=== PATIENT | male | born 1980 | race Caucasian/White ===

== ENCOUNTER 2022-08-28 21:37 | Inpatient (IN) | payer OTHER ==
[~2022-08-28] VITALS: Ht 170.2 cm; Wt 100.7 kg
--- NOTE | 2022-08-28 21:37 | NUR ---
PT BROUGHT TO BED 10 VIA DONNA DAVILA Addendum: 08/28/22 at 2152 by ALLYSON PT BROUGHT TO BED 10 VIA CHRISTOPHER DAVILA
[2022-08-28 21:40] VITALS: BP 64/21
[2022-08-28 21:52] VITALS: BP 65/26
[2022-08-28] MEDS ORDERED: PIPERACILLIN/TAZOBACTAM 3.375 GM in DEXTROSE 5% 50 ML IV ONE (21:55)
[2022-08-28] MEDS ORDERED: NACL 0.9% 2,000 ML IV SCH (21:55)
--- NOTE | 2022-08-28 22:00 | NUR ---
Gtube dressing noted soaked with gastric contents. scarring and dressing noted on abdominal area. ERMD at bedside and aware. Gtube dressing was changed Addendum: 08/29/22 at 0632 by [email or web address] Gtube was noted soaked with gastric content on arrival
[2022-08-28 23:03] LABS: APPEARANCE,URINE CLEAR (CLEAR); BILIRUBIN,URINE NEGATIVE (NEGATIVE); BLOOD, URINE 3+ (NEGATIVE); COLOR,URINE YELLOW (YELLOW); LEUKOCYTE ESTERASE ,URINE 3+ (NEGATIVE); NITRITE, URINE NEGATIVE (NEGATIVE); PH,URINE 7.5 (5.0-9.0); UGLUCOSE NEGATIVE (NEGATIVE)
[2022-08-28 23:19] LABS: RBC,URINE TOO NUMEROUS TO COUN /HPF (0-5)
[2022-08-28 23:40] LABS: BASOPHILS % (AUTO) 0.1 % (0.0-2.0); EOSINOPHILS # (AUTO) 0.1 K/uL (0-0.4); EOSINOPHILS % (AUTO) 0.4 % (0.0-4.0); HEMATOCRIT 33.4 % (36-52); HEMOGLOBIN 10.6 g/dL (12.0-18.0); LYMPHOCYTES # (AUTO) 0.8 K/uL (2.0-11.5); LYMPHOCYTES % (AUTO) 3.7 % (20.5-51.1); MEAN CORPUSCULAR HEMOGLOBIN 28 pg (27-31); MEAN CORPUSCULAR HGB CONC 32 g/dL (33-37); MONOCYTES # (AUTO) 1.1 K/uL (0.8-1.0); MONOCYTES % (AUTO) 4.8 % (1.7-9.3); NEUTROPHILS # (AUTO) 20.9 K/uL (1.8-7.7); PLATELET COUNT (AUTO) 278 K/uL (140-450); RED BLOOD CELL COUNT(AUTO) 3.75 MIL/uL (4.20-6.10); RED CELL DISTRIBUTION WIDTH 18.5 % (11.6-13.7); WHITE BLOOD COUNT (AUTO) 22.9 K/uL (4.8-10.8)
[2022-08-29] VITALS (17 sets, daily range): BP systolic 95–137; BP diastolic 47–86
[2022-08-29 00:07] LABS: ALBUMIN 2.5 g/dL (3.4-5.0); ANION GAP 11.2 (8-16); CARBON DIOXIDE 27.6 mmol/L (21-32); CREATININE 1.1 mg/dL (0.6-1.3); POTASSIUM 3.8 mmol/L (3.5-5.1); TOTAL BILIRUBIN 0.9 mg/dL (0.0-1.0)
--- NOTE | 2022-08-29 00:40 | NUR ---
ER Dr. Do at bedside placing central line
[2022-08-29] MEDS ORDERED: NOREPINEPHRINE 4 MG in DEXTROSE 5% 250 ML IV ONE (00:45)
[2022-08-29] MEDS ORDERED: ONDANSETRON 4 MG/2 ML VIAL IVP PRN (00:55)
[2022-08-29] MEDS ORDERED: KCL 20 MEQ IN 100 mL PREMIX 200 ML IV PRN (00:55)
[2022-08-29] MEDS ORDERED: MAG SULF 2000 MG/WATER PREMIX 50 ML IV PRN (00:55)
[2022-08-29] MEDS ORDERED: POTASSIUM CHLORIDE 10 MEQ TABER PO PRN (00:55)
[2022-08-29] MEDS ORDERED: VANCOMYCIN PER PHARMACY MC PRN (00:55)
[2022-08-29] MEDS ORDERED: ACETAMINOPHEN 325 MG TAB PO PRN (00:55)
[2022-08-29] MEDS ORDERED: LORazepam 1 MG TAB PO PRN (00:55)
[2022-08-29] MEDS ORDERED: MORPHINE SULFATE 4 MG/ML SYR IVP PRN (00:55)
[2022-08-29] MEDS ORDERED: NOREPINEPHRINE 4 MG/4 ML VIAL IV ONE ×2 (01:12→08:49)
[2022-08-29] MEDS ORDERED: PIPERACILLIN/TAZOBACTAM 3.375 GM VIAL IV ONE ×2 (01:44→07:54)
[2022-08-29] MEDS ORDERED: VANCOMYCIN 1GM/DEXT 5% PREMIX 200 ML IV SCH (03:00)
--- NOTE | 2022-08-29 03:23 | NUR ---
Patient care provided and linens changes, wound on sacral area cleaned and covered with dressing.
[2022-08-29] MEDS ORDERED: ACETAMINOPHEN 650 MG SUPP RC ONE (05:14)
--- NOTE | 2022-08-29 05:40 | NUR ---
Pt heart rate noted elevated in the 140s, rectal temp checked 102.4. tylenol 650 mg given. While replacing rinaldi catheter from facility, hematuria noted - urine was blood red. also noted gtube dressing soaked with gastric contents. Dr. Dasha beverly, waiting for response from on-call Dr. Zuñiga.
--- NOTE | 2022-08-29 06:20 | NUR ---
Paged attending physician regarding patient, awaiting response
--- NOTE | 2022-08-29 07:05 | NUR ---
Levophed at max dose, attending physician paged. waiting for response
--- NOTE | 2022-08-29 07:15 | NUR ---
Received response from Dr. Zuñiga, new orders given for KUB, and to start on vasopressin drip.
--- NOTE | 2022-08-29 07:29 | NUR ---
RECEIVED ON A [employer] R860 VENTILATOR PLUGGED INTO RED OUTLET TOLERATING WELL WITHOUT COMPLICATIONS NOTED TO A PORTEX DCT #8 AIRWAY SECURED WITH A PORTEX TRACH TIE CUFF PRESSURE CHECKED NOTED AMBU BAG AT BEDSIDE AWAKE STABLE NO EVIDENCE FO RESPIRATORY DISTRESS NOTED EQUAL CHEST RISE DEEP TRACHEAL SUCTION FOR LARGE THIN YELLOW SECRETIONS AIRWAY PATENT
--- NOTE | 2022-08-29 07:36 | NUR ---
Report given to Shin GROSSMAN
[2022-08-29] MEDS ORDERED: ACETAMINOPHEN 650 MG SUPP RC PRN (07:40)
[2022-08-29] MEDS: PIPERACILLIN/TAZOBACTAM 3.375 GM in DEXTROSE 5% 50 ML IV SCH ×3 (07:55→17:32)
--- NOTE | 2022-08-29 08:02 | NUR ---
TRANSFERRED TO ICU-4 PATIENT REMAINED ON VENTILATOR TOLERATED TRANSFER WELL WITHOUT ADVERSE REACTIONS NOTED SATURATION 97% HR 114
--- NOTE | 2022-08-29 08:03 | NUR ---
Report given to receiving CHAUNCEY. VSThalia. Pt currently running LEVO thru central line @ 30mcg. Wound pics taken by PM CHAUNCEY.
--- NOTE | 2022-08-29 08:30 | NUR ---
RECEIVED REPORT FROM FROM ER NURSE. ADMITTED 42Y/O MALE TRACH TO VENT ACPRVC 28% RATE 16 TV 450 PEEP 5. CC OF FEVER AND HEMATURIA. ADMITTING DX SEPSIS. WITH RIJ TLC RUNNING LEVOPHED 30MCG/MIN, BP 57/17. VASOPRESSIN STARTED
--- NOTE | 2022-08-29 08:57 | NUR ---
PATIENT HAS BEEN SCREENED AND CATEGORIZED HIGH NUTRITION RISK. PATIENT WILL BE SEEN WITHIN 1-2 DAYS OF ADMISSION. REVIEWED BY MARC HERNANDEZ RD
[2022-08-29] MEDS: ENOXAPARIN 40 MG/0.4 ML SYR SUBQ SCH (09:00)
[2022-08-29] MEDS: VASOPRESSIN 20 UNITS in NACL 0.9% 250 ML IV SCH ×2 (09:00→23:23)
[2022-08-29] MEDS ORDERED: DOCUSATE SODIUM 100 MG GELCAP PO SCH (09:00)
[2022-08-29] MEDS ORDERED: NOREPINEPHRINE 8 MG in DEXTROSE 5% 250 ML IV PRN (09:30)
[2022-08-29] MEDS ORDERED: NOREPINEPHRINE 16 MG in DEXTROSE 5% 250 ML IV PRN (09:50)
[2022-08-29] MEDS: VANCOMYCIN 1.25GM PREMIX 250 ML IV SCH ×2 (10:53→22:29)
[2022-08-29] MEDS ORDERED: NACL 0.9% 500 ML IV SCH (10:55)
--- NOTE | 2022-08-29 11:00 | NUR ---
STABLE RESTING WELL GOOD CHEST RISE DEEP TRACHEAL SUCTION FOR LARGE THIN PALE YELLOW SECRETIONS AIRWAY PATENT
--- NOTE | 2022-08-29 11:30 | NUR ---
SEEN AND EXAMINED BY DR GANDHI, ORDERS NOTED AND CARRIED OUT
[2022-08-29] MEDS: levETIRAcetam 500 MG in NACL 0.9% 100 ML IV SCH ×2 (12:16→21:57)
[2022-08-29] MEDS ORDERED: NACL 0.9% 1,000 ML IV SCH (12:25)
--- NOTE | 2022-08-29 13:44 | NUR ---
TRANSFERRED TO RADIOLOGY FOR CT SCAN OF ABDOMINAL/PELVIS REMOVED FROM VENTILATOR PLACED ON SUPPLEMENTAL OXYGEN VIA E-TANK AT 15 LPM TO AMBU BAG/HME/INLINE SUCTION CATHETER/TRACHEOSTOMY TUBE BAG DEPRESSION EVERY 6-8 SECONDS TOLERATED PROCEDURE ANT TRANSFERS WELL WITHOUT COMPLICATIONS NOTED SATURATION 100% HR MID 80'S
--- NOTE | 2022-08-29 13:58 | NUR ---
BACK FROM CT, NO APPARENT DISTRESS, VS WNL
--- NOTE | 2022-08-29 14:10 | NUR ---
STABLE GOOD CHEST RISE DEEP TRACHEAL SUCTION FOR SMALL THIN PALE YELLOW SECRETIONS AIRWAY PATENT
--- NOTE | 2022-08-29 14:40 | NUR ---
DC PLANNING ASSESSMENT COMPLETE PLEASE REFER TO ASSESSMENT FOR ADDITIONAL DETAILS PT CHRONIC TRACH TO VENT PT, THEREFORE, COLLAT INFO GATHERED FROM [facility] ADMIN. OUTREACHED TO PT MOTHER, TO CONFIRM INFORMATION GATHERED FROM BRAD. PT IS A 42 YR OLD MALE ADMITTED TO [facility] FROM [facility] WITH DX OF SEPTIC SHOCK. PT HAS PAST MEDICAL HX OF SEIZURE, HYPERTENSION, CHRONIC RESP FAILURE ( TRAYC-VENT DEPENDENT) PEG TUBE AND QUADRIPLEGIA. PT PRIMARILY BEDBOUND AND IS TOTAL CARE AT FACILITY PT IN SUBACUTE CARE WITH [facility], ADMISSION DATE 08/21/21. BRAD REPORTS TENTATIVE DC PLAN IS FOR PT TO RETURN TO [facility], ONCE MEDICALLY STABLE. OUTREACHED TO PTS MOTHER TO CONFIRM INFORMATION GATHERED FROM BRAD. MOTHER CONFIRMED ALL INFO GATHERED AND IS AWARE PT HAS BEEN ADMITTED TO [facility]. MOTHER CONFIRMS TENTATIVE DC PLAN IS FOR PT TO RETURN TO [facility] ONCE MEDICALLY STABLE. Addendum: 08/29/22 at 1443 by Torin WONG Amended: Links added.
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
--- NOTE | 2022-08-29 15:32 | NUR ---
08/29/22 RD INITIAL ASSESSMENT COMPLETED PLEASE REFER TO NUTRITION ASSESSMENT UNDER CARE ACTIVITY FOR ESTIMATED NUTRITIONAL NEEDS. 1. MONITOR NPO STATUS 2. WHEN/IF MEDICALLY APPROPRIATE TO START TF, RECOMMEND JEVITY 1.2 AT GOAL RATE 70 ML/HR, FWF 100 ML Q4H TOLERATED, WITH TOMMY BID FOR WOUND SUPPORT. (TOMMY BID PROVIDES 160 KCAL AND 5 GM PROTEIN DAILY) - WITH TOMMY BID, PROVIDES 1680 ML TOTAL VOLUME, 2176 KCAL, 97 GM PROTEIN AND 1955 ML FREE WATER DAILY MEETING 100% ESTIMATED KCAL AND PROTEIN NEEDS; ADEQUATE - START TF AT 2O ML/HR INCREASE BY 2O ML Q4H UNTIL GOAL IS REACHED TOLERATED 3. MONITOR GI SYMPTOMS, GASTRIC RESIDUALS AND NUTRITION RELATED LAB VALUES 4. CONSULT RD PRN 5. RD TO FOLLOW-UP 2-3 DAYS, HIGH RISK REVIEWED BY MARC HERNANDEZ RD
--- NOTE | 2022-08-29 15:53 | NUR ---
NO SOB NOTED GOOD CHEST RISE DEEP TRACHEAL SUCTION FOR MODERATE THIN YELLOW SECRETIONS AIRWAY PATENT
[2022-08-30] VITALS (26 sets, daily range): BP systolic 95–126; BP diastolic 51–77
[2022-08-30] MEDS: PIPERACILLIN/TAZOBACTAM 3.375 GM in DEXTROSE 5% 50 ML IV SCH ×4 (00:41→17:36)
--- NOTE | 2022-08-30 06:00 | NUR ---
--PT CONT. WITH TRACH-TO VENT. PT JOHNNY WELL. IV I/P VIA RIJ-TLC. PT OPENS EYE AND HAS FACIAL GRIMACING TO PAIN. PT MED WITH MS 4MG IVP X1. PT HAS BEEN IN SR. PT CONT. WITH LEVOPHED DRIP-BP HAS BEEN >90 SYST. PT ALSO CONT. ON VASOPRESS. DRIP. PT HAD LARGE DARK BRN DIARRHEA STOOL. BATH AND LINEN CHANGE DONE. WOUND CARE GIVEN. PT HAS GT WITH WOUND NEAR IT WITH YELL AND SANG. DRAINAGE. PT HAS T.FEEDG BUT GT HAS BECOME OCCLUDED AT END OF SHIFT-ENDORSED TO DAY CHAUNCEY ESTRADA. AM LABS DONE. GEN. COND HAS BEEN STABLE/GUARDED. STEPHANIE RN, BSN
--- NOTE | 2022-08-30 06:00 | NUR ---
FURTHER NOTE-PT HAS BEEN IN SR/NO ECTOPY. STEPHANIE RN,BSN
[2022-08-30 06:19] LABS: BASOPHILS % (AUTO) 0.1 % (0.0-2.0); EOSINOPHILS # (AUTO) 0.4 K/uL (0-0.4); EOSINOPHILS % (AUTO) 1.5 % (0.0-4.0); HEMATOCRIT 30.4 % (36-52); HEMOGLOBIN 9.5 g/dL (12.0-18.0); LYMPHOCYTES # (AUTO) 1.6 K/uL (2.0-11.5); LYMPHOCYTES % (AUTO) 6.8 % (20.5-51.1); MEAN CORPUSCULAR HEMOGLOBIN 28 pg (27-31); MEAN CORPUSCULAR HGB CONC 31 g/dL (33-37); MONOCYTES # (AUTO) 1.1 K/uL (0.8-1.0); MONOCYTES % (AUTO) 4.8 % (1.7-9.3); NEUTROPHILS # (AUTO) 20.7 K/uL (1.8-7.7); NEUTROPHILS % (AUTO) 86.8 % (42.2-75.2); PLATELET COUNT (AUTO) 199 K/uL (140-450); RED BLOOD CELL COUNT(AUTO) 3.38 MIL/uL (4.20-6.10); RED CELL DISTRIBUTION WIDTH 18.4 % (11.6-13.7); WHITE BLOOD COUNT (AUTO) 23.8 K/uL (4.8-10.8)
[2022-08-30 06:40] LABS: ANION GAP 13.4 (8-16); CARBON DIOXIDE 24.6 mmol/L (21-32); CREATININE 1.3 mg/dL (0.6-1.3)
--- NOTE | 2022-08-30 07:00 | NUR ---
RECEIVED PT ON ACVC 14,TV 500,+5, 28%. VENT WHEELS ARE LOCKED, PLUGGED INTO RED OUTLET, AMBUBAG AT BEDSIDE, ALARMS AER SET AND AUDIBLE. SATURATION 100%. BREATH SOUNDS WERE DIMINISHED WITH RALES AT THE BASE. WILL TITRATE O2 TOLERATED.
[2022-08-30] MEDS: levETIRAcetam 500 MG in NACL 0.9% 100 ML IV SCH ×2 (09:00→21:14)
[2022-08-30] MEDS: ENOXAPARIN 40 MG/0.4 ML SYR SUBQ SCH (09:00)
[2022-08-30] MEDS: DOCUSATE 100 MG/10 ML UDC GT SCH (09:00)
--- NOTE | 2022-08-30 12:22 | NUR ---
PT DOESN'T WANT BREATHING TREATMENT AT THIS TIME. BREATH SOUNDS WERE CLEAR AND 98% SATURATION. WILL CONTINUE TO MONITOR. Addendum: 08/30/22 at 1517 by Cheyenne Black RT WRONG PT
--- NOTE | 2022-08-30 22:11 | NUR ---
FOUND RIGHT IJ TRIPLE LUMEN DC AND ON FLOOR. MOVED PRESSORS TO 18G LEFT FOREARM. NO BLEEDING NOTED ON LEFT IJ SITE. DR JONES NOTIFIED. ORDERED TO MONITOR.
[2022-08-31] VITALS (26 sets, daily range): BP systolic 103–144; BP diastolic 53–86
[2022-08-31] MEDS: MEROPENEM 1,000 MG in NACL 0.9% 50 ML IV SCH ×3 (04:40→20:28)
[2022-08-31 06:10] LABS: BASOPHILS # (AUTO) 0.1 K/uL (0.00-0.22); BASOPHILS % (AUTO) 0.3 % (0.0-2.0); EOSINOPHILS # (AUTO) 0.3 K/uL (0-0.4); HEMATOCRIT 29.9 % (36-52); HEMOGLOBIN 9.4 g/dL (12.0-18.0); LYMPHOCYTES # (AUTO) 1.7 K/uL (2.0-11.5); LYMPHOCYTES % (AUTO) 9.6 % (20.5-51.1); MEAN CORPUSCULAR HEMOGLOBIN 28 pg (27-31); MEAN CORPUSCULAR HGB CONC 32 g/dL (33-37); MEAN CORPUSCULAR VOLUME 88.4 fL (80-94); MONOCYTES # (AUTO) 0.9 K/uL (0.8-1.0); MONOCYTES % (AUTO) 5.1 % (1.7-9.3); NEUTROPHILS # (AUTO) 14.4 K/uL (1.8-7.7); PLATELET COUNT (AUTO) 187 K/uL (140-450); RED BLOOD CELL COUNT(AUTO) 3.38 MIL/uL (4.20-6.10); RED CELL DISTRIBUTION WIDTH 18.4 % (11.6-13.7); WHITE BLOOD COUNT (AUTO) 17.4 K/uL (4.8-10.8)
[2022-08-31 06:26] LABS: ANION GAP 15.1 (8-16); CARBON DIOXIDE 22.9 mmol/L (21-32); CREATININE 1.1 mg/dL (0.6-1.3)
--- NOTE | 2022-08-31 07:30 | NUR ---
RECEIVED PT IN BED, OBTUNDED, TRACH TO VENT TOLERATING VENT SETTINGS. NSR ON MONITOR. ON VASOPRESSIN TOLERATING WELL. F/C DRAINING TO GRAVITY. NAD SAFETY MAINTAINED
[2022-08-31] MEDS: ENOXAPARIN 40 MG/0.4 ML SYR SUBQ SCH (09:00)
[2022-08-31] MEDS: levETIRAcetam 500 MG in NACL 0.9% 100 ML IV SCH ×2 (09:00→20:28)
[2022-08-31] MEDS: DOCUSATE 100 MG/10 ML UDC GT SCH (09:00)
--- NOTE | 2022-08-31 09:00 | NUR ---
DR GANDHI AT BEDSIDE, ORDERS TO STOP VASOPRESSIN.
--- NOTE | 2022-08-31 10:00 | NUR ---
PT VSS REMAIN STABLE WITHOUT PRESSORS
--- NOTE | 2022-08-31 14:00 | NUR ---
DR HAINES AT BEDSIDE OK WITH ORDERS FOR RESTART GTUBE FEEDING
--- NOTE | 2022-08-31 15:00 | NUR ---
PT INCONTINENT OF LARGE AMOUNT OF STOOL CLEANED AND REPOSITIONED.
--- NOTE | 2022-08-31 16:58 | NUR ---
08/31/22 RD FOLLOW UP COMPLETED PLEASE REFER TO NUTRITION ASSESSMENT UNDER CARE ACTIVITY FOR ESTIMATED NUTRITIONAL NEEDS. 1. RECOMMEND PROSOURCE BID FOR LOW JUDE SUPPORT (PROVIDES 120 KCAL AND 30 GM PROTEIN DAILY) 2. CONTINUE JEVITY 1.2 AT GOAL RATE 50 ML/HR, FWF 50 ML Q6H TOLERATED, WITH PROSOURCE BID FOR WOUND SUPPORT - WITH PROSOURCE BID, PROVIDES 1200 ML TOTAL VOLUME, 1560 KCAL, 96 GM PROTEIN AND 1168 ML FREE WATER DAILY MEETING 93% ESTIMATED KCAL NEEDS AND 100% ESTIMATED PROTEIN NEEDS; ADEQUATE 3. MONITOR GI SYMPTOMS, GASTRIC RESIDUALS AND NUTRITION RELATED LAB VALUES 4. CONSULT RD PRN 5. RD TO FOLLOW-UP 2-3 DAYS, HIGH RISK REVIEWED BY MARC HERNANDEZ RD
--- NOTE | 2022-08-31 17:00 | NUR ---
WOUND CARE COMPLETED
[2022-08-31] MEDS ORDERED: SODIUM BICARBONATE 8.4% PFS 50 MEQ/50 ML SYR IVP ONE (19:15)
--- NOTE | 2022-08-31 19:15 | NUR ---
RECEIVED PATIENT ON BED WITH HOB ELEVATED TO 30 DEGREE; OPEN EYES SPONTANEOUSLY BUT DOESN'T TRACKS NOR FOLLOW ANY COMMANDS. ON TRACH TO VENT AT 24% FIO2, SO2 97%. CARDIACSCOPE SHOWS ON SINUS RHYTHM HR 61/MIN NO ARRHYTHMIAS SEEN. COMMENCING ON IVF NORMAL SALINE TO KVO VIA G18 PERIPHERAL LINE TO RIGHT FOREARM; PATIENT AND INTACT. ABDOMEN IS SOFT, HYPOACTIVE BOWEL SOUNDS. ON CONTINUOS TUBE FEEDING JEVITY1/.2 AT 40 ML/HR TOLERATED WITH MINIMAL RESIDUAL. WITH GLASER CATH IN SITU TO GRAVITY DRAINAGE BAG DRAINING BROWNISH YELLOW CLOUDY URINE OUTPUT; INTACT. WITH RIGID EXTREMITIES AND RIGHT ARM WITH CONTRACTURE.
[2022-08-31] MEDS ORDERED: MIDODRINE 5 MG TAB ONE (20:17)
--- NOTE | 2022-08-31 20:30 | NUR ---
WITH BM NOTED TO A WATERY TO LOOSE YELLOW STOOL; KEPT CLEAN DRY AND COMFORTABLE; REPOSITIONED .
[2022-09-01] VITALS (30 sets, daily range): BP systolic 106–150; BP diastolic 58–94
[2022-09-01] MEDS: MEROPENEM 1,000 MG in NACL 0.9% 50 ML IV SCH ×2 (04:48→12:54)
[2022-09-01] MEDS ORDERED: THERAHONEY WOUND DRESSING TP PRN (05:15)
[2022-09-01] MEDS ORDERED: SKINTEGRITY HYDROGEL TP PRN (05:20)
--- NOTE | 2022-09-01 06:00 | NUR ---
MORNING BED BATH DONE; KEPT CLEAN DRY AND COMFORTABLE.
[2022-09-01 06:22] LABS: BASOPHILS # (AUTO) 0.1 K/uL (0.00-0.22); BASOPHILS % (AUTO) 0.7 % (0.0-2.0); EOSINOPHILS # (AUTO) 0.2 K/uL (0-0.4); EOSINOPHILS % (AUTO) 1.2 % (0.0-4.0); HEMATOCRIT 32.5 % (36-52); HEMOGLOBIN 10.2 g/dL (12.0-18.0); LYMPHOCYTES % (AUTO) 12.3 % (20.5-51.1); MEAN CORPUSCULAR HEMOGLOBIN 28 pg (27-31); MEAN CORPUSCULAR HGB CONC 31 g/dL (33-37); MEAN CORPUSCULAR VOLUME 90.5 fL (80-94); MONOCYTES # (AUTO) 0.7 K/uL (0.8-1.0); MONOCYTES % (AUTO) 4.4 % (1.7-9.3); NEUTROPHILS # (AUTO) 13.2 K/uL (1.8-7.7); NEUTROPHILS % (AUTO) 81.4 % (42.2-75.2); PLATELET COUNT (AUTO) 232 K/uL (140-450); RED BLOOD CELL COUNT(AUTO) 3.59 MIL/uL (4.20-6.10); RED CELL DISTRIBUTION WIDTH 18.5 % (11.6-13.7)
[2022-09-01 06:42] LABS: WHITE BLOOD COUNT (AUTO) 16.2 K/uL (4.8-10.8)
[2022-09-01 06:45] LABS: ANION GAP 15.3 (8-16); CARBON DIOXIDE 20.1 mmol/L (21-32); CREATININE 1.1 mg/dL (0.6-1.3); POTASSIUM 3.4 mmol/L (3.5-5.1)
--- NOTE | 2022-09-01 07:05 | NUR ---
RECEIVED PT ON ACVC TV500,F14,+5,24%. VENT WHEELS ARE LOCKED, PLUGGED INTO RED OUTLET, AMBUBAG AT BEDSIDE. ALARMS ARE SET AND AUDIBLE. WILL CONTINUE TO MONITOR.
--- NOTE | 2022-09-01 07:25 | NUR ---
RECEIVED PATIENT FROM FELICITY RN. PATIENT RESTING IN BED WITH EYES CLOSED. PATIENT VS STABLE AT THIS TIME. SR ON MONITOR TUBE FEEDING STOPPED DT CLOG. TUBING CHANGED AND TUBE FEEDING RESUMED. TRACH IN PLACE TO VENT SETTINGS AC VC 24, 500, 14, 5. WOUNDS TO RIGHT POSTERIOR LOWER EXTREMITY, ABD AROUND GTUBE SITE AND SACROCOCCYX. F/C IN PLACE DRAINING CLEAR YELLOW URINE. 18 G TO RIGHT FA AND L FA. NS AT 3 ML/HR INFUSING THROUGH L FE IV. RIGHT FA IV FLUSHES WITHOUT S/S OF INFILTRATION OR PHLEBITIS. WILL CONTINUE TO MONITOR.
[2022-09-01] MEDS: levETIRAcetam 500 MG in NACL 0.9% 100 ML IV SCH ×2 (08:10→20:43)
[2022-09-01] MEDS ORDERED: POTASSIUM CHLORIDE 20% 40 MEQ/15 ML UDC GT PRN (08:55)
[2022-09-01] MEDS: ENOXAPARIN 40 MG/0.4 ML SYR SUBQ SCH (09:00)
[2022-09-01] MEDS: DOCUSATE 100 MG/10 ML UDC GT SCH (09:00)
--- NOTE | 2022-09-01 11:30 | NUR ---
WOUND CARE EVALUATION NOTES: REASON FOR EVALUATION: SACRAL, ABDOMINAL, AND RLE WOUNDS WOUND ASSESSMENT COMPLETED ON THIS 42 Y/O MALE ADMITTED TO ICU FOR SEPTIC SHOCK. PATIENT IS FROM A SNF. PAST MEDICAL HISTORY INCLUDES SEIZURE DISORDER, CHRONIC RESPIRATORY FAILURE, DYSPHAGIA, GTUBE DEPENDENT, INDWELLING GLASER CATHETER, C5 INJURY WITH QUADRIPLEGIA, TRACH TO VENT. ALL ABOVE INFORMATION WAS OBTAINED FROM THE ADMISSION H&P. PATIENT IS APHASIC. SKIN IS WARM TO TOUCH. HAS BUE CONTRACTURES. REQUIRES ASSISTANCE WITH TURNING. PLAN OF CARE AND PRESSURE PREVENTATIVE MEASURES DISCUSSED WITH PATIENT AND PRIMARY RN. PATIENT UNABLE TO COMPREHEND, APHASIC. PATIENT ADMITTED WITH SACRAL, ABDOMINAL, AND RLE WOUNDS COMORBIDITIES RELATED TO FURTHER SKIN BREAKDOWN SUCH IMPAIRED MOBILITY AND LOW ALBUMIN LEVEL INTEGUMENTARY: - SACRALCOCCYX STAGE 4 PRESSURE ULCER 10 X 10 X 2.5 CM. WOUND BED PINK, YELLOW SLOUGH 25%, MINIMAL SEROUS DRAINAGE, NO ODOR. WOUND EDGES IRREGULAR SHAPE. PERIWOUND RED, DENUDED. -RIGHT POSTERIOR LEG REOPENED SCAR TISSUE PRESSURE ULCER STAGE II 3 X 2 X 0.1 CM. WOUND BED PINK, NO SLOUGH, NO DRAINAGE, NO ODOR. WOUND EDGES SMOOTH. PERIWOUND INTACT, DRY. 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 WOUND BED PINK, MINIMAL SEROUS DRAINAGE, NO ODOR. WOUND EDGES IRREGULAR. PERIWOUND INTACT. RECOMMENDATIONS: - SACRALCOCCYX STAGE 4 PRESSURE ULCER: CLEANSE WITH WOUND CLEANSER, PAT DRY, APPLY THERAHONEY GEL, COVER WITH DRY DRESSINGS, AND SECURE WITH FOAM DRESSING DAILY AND PRN IF SOILED. - RIGHT POSTERIOR LEG REOPENED SCAR TISSUE PRESSURE ULCER STAGE II: CLEANSE WITH NS, PAT DRY, APPLY HYDROGEL, COVER WITH DRY DRESSING, AND SECURE WITH FOAM DRESSING DAILY AND PRN IF SOILED. - MEDIAL ABDOMEN RE-OPENED HEALED SURGICAL WOUND 2/2 MOISTURE ASSOCIATED DERMATITIS FROM LEAKING GTUBE STOMA: CLEANSE WITH NS, PAT DRY, APPLY Z-GUARD CREAM ONTO WOUND BED AND SURROUNDINGS, COVER WITH ISLAND DRESSING DAILY AND PRN IF SOILED. - OFFLOAD BILATERAL HEELS BY PLACING BILATERAL HEEL PROTECTORS. - TURN AND REPOSITION PATIENT Q2H TO LEFT AND RIGHT SIDE TO OFFLOAD SACRALCOCCYX. - ASSESS AND MONITOR SKIN CONDITION DURING POSITION CHANGE. PLEASE PAY ATTENTION TO SACRALCOCCYX AND HEELS. - KEEP SKIN DRY AND CLEAN AT ALL TIMES. - RD CONSULT RECOMMENDATIONS DISCUSSED WITH PRIMARY RN. WILL FOLLOW-UP PATIENT Q7-10 DAYS AND PRN. PLEASE CONTACT WOUND CARE NURSE FOR ANY CONCERNS AND CHANGES IN WOUND CONDITION.
--- NOTE | 2022-09-01 12:58 | NUR ---
DR. GORDON HERE AT THIS TIME TO SEE PATIENT. PLACED OWN ORDERS IN EMR.
--- NOTE | 2022-09-01 16:30 | NUR ---
DR. BARRETT HERE TO SEE PATIENT. PER LIKELY TO BE D/C BY SATURDAY. NO NEW ORDERS AT THIS TIME.
[2022-09-01] MEDS ORDERED: GENTAMICIN PER PHARMACY MC PRN (17:10)
--- NOTE | 2022-09-01 19:39 | NUR ---
BEDSIDE REPORT GIVEN TO MAINOR RN AND FLEICITY RN. PATIENT STABLE AT THIS TIME.
--- NOTE | 2022-09-01 19:40 | NUR ---
RECEIVED REPORT FROM NURSE ANDREI Yarbrough PATIENT NONVERBAL, ON VENTILATOR RESTING IN BED. PATIENT ON TRACH TO VENT AC VC FIO2 24% RATE 14 TV 500 PEEP 5. VITAL SIGNS STABLE. NSR. SPo2 100%. JEVITY 1.2 RUNNING AT 50ML/HR TOLERATING WELL, NO NAUSEA, NO VOMITING. PATIENT HAS GLASER DRAINING URINE.
--- NOTE | 2022-09-01 20:00 | NUR ---
PATIENT POSITIVE FOR ESBL IN URINE, PATIENT PUT ON CONTACT ISOLATION. GARAMYCIN WAS ADMINISTERED PER MD ORDER, NO ADVERSE EFFECTS NOTED AFTER ADMINISTRATION, TOLERATED WELL, VITAL SIGNS STABLE.
[2022-09-01] MEDS ORDERED: GENTAMICIN 80 MG/2 ML VIAL ONE (21:08)
[2022-09-01] MEDS: GENTAMICIN 120 MG in DEXTROSE 5% 100 ML IV SCH (22:42)
[2022-09-01] MEDS: HYDROcodone/APAP 5/325 MG 1 TAB TAB PO PRN (23:33)
[2022-09-02] VITALS (16 sets, daily range): BP systolic 104–161; BP diastolic 56–93
[2022-09-02] MEDS: THERAHONEY GEL 42.5 GM TP SCH ×2 (00:33→13:00)
[2022-09-02] MEDS: SKINTEGRITY HYDROGEL TP SCH ×2 (00:35→13:00)
[2022-09-02] MEDS: Z-GUARD PASTE TP SCH ×2 (00:36→13:00)
[2022-09-02] MEDS ORDERED: GENTAMICIN 80 MG/2 ML VIAL ONE (05:28)
[2022-09-02] MEDS: GENTAMICIN 120 MG in DEXTROSE 5% 100 ML IV SCH ×2 (05:48→11:51)
--- NOTE | 2022-09-02 07:11 | NUR ---
BEDSIDE REPORT RECEIVED FROM EASTON GROSSMAN. VITAL SIGNS STABLE AT THIS TIME. TRACH TO VENT AC VC FIO2 24% RATE 14 TV 500 PEEP 5 SATURATING AT 100%. PATENT IV ON LEFT FOREARM 18G RUNNING 3ML NS. RECEIVING JEVITY 1.2 CONTINUOUSLY VIA G-TUBE AT 50ML/HR. GLASER CATHETER DRAINING URINE TO GRAVITY.
--- NOTE | 2022-09-02 07:11 | NUR ---
BEDSIDE REPORT GIVEN TO NURSE ANDREI YarbroughFOR CONTINUITY OF CARE. PATIENT'S VITAL SIGNS STABLE HR 65, SPo2 100%. PATIENT ON TRACH TO VENT AC VC FIO2 24% RATE 14 TV 500 PEEP 5. PATENT IV ON LEFT FOREARM RUNNING 3ML NS. CURRENTLY RECEIVING CONTINUOUS G-TUBE FEEDING AT 50ML/HR. GLASER CATHETER DRAINING URINE.
[2022-09-02] MEDS: DOCUSATE 100 MG/10 ML UDC GT SCH (08:42)
[2022-09-02] MEDS: levETIRAcetam 500 MG in NACL 0.9% 100 ML IV SCH ×2 (08:42→21:30)
[2022-09-02] MEDS: ENOXAPARIN 40 MG/0.4 ML SYR SUBQ SCH (09:00)
[2022-09-02 09:10] LABS: BASOPHILS % (AUTO) 0.4 % (0.0-2.0); EOSINOPHILS # (AUTO) 0.3 K/uL (0-0.4); EOSINOPHILS % (AUTO) 2.2 % (0.0-4.0); HEMATOCRIT 35.4 % (36-52); HEMOGLOBIN 10.9 g/dL (12.0-18.0); LYMPHOCYTES # (AUTO) 2.1 K/uL (2.0-11.5); LYMPHOCYTES % (AUTO) 17.9 % (20.5-51.1); MEAN CORPUSCULAR HEMOGLOBIN 28 pg (27-31); MEAN CORPUSCULAR HGB CONC 31 g/dL (33-37); MEAN CORPUSCULAR VOLUME 90.2 fL (80-94); MONOCYTES # (AUTO) 0.6 K/uL (0.8-1.0); MONOCYTES % (AUTO) 5.4 % (1.7-9.3); NEUTROPHILS # (AUTO) 8.9 K/uL (1.8-7.7); NEUTROPHILS % (AUTO) 74.1 % (42.2-75.2); PLATELET COUNT (AUTO) 213 K/uL (140-450); RED BLOOD CELL COUNT(AUTO) 3.92 MIL/uL (4.20-6.10)
[2022-09-02] MEDS: HYDROcodone/APAP 5/325 MG 1 TAB TAB PO PRN (09:15)
[2022-09-02 09:25] LABS: ANION GAP 16.2 (8-16); CARBON DIOXIDE 22.7 mmol/L (21-32); CREATININE 1.2 mg/dL (0.6-1.3); POTASSIUM 3.9 mmol/L (3.5-5.1)
--- NOTE | 2022-09-02 10:06 | NUR ---
DR. BARRETT HERE TO SEE PATIENT. PER DOCTOR OKAY TO DOWNGRADE PATIENT TO TELEMETRY.
--- NOTE | 2022-09-02 12:37 | NUR ---
HERE TO SEE PATIENT. DR GORDON MADE AWARE OF 'S TRANSFER ORDER. NOTIFIED OF SODIUM LEVEL OF 150 AND CHLORIDE LEVEL OF 115. PER DR. GORDON OKAY TO INCREASE FWF TO 100ML Q 6 HRS.
[2022-09-02] MEDS ORDERED: GENT10SO8 IV (12:50)
[2022-09-02] MEDS ORDERED: ACET-2619 GT ×2 (13:00→13:06)
[2022-09-02] MEDS ORDERED: LACT1CAP92 GT (13:12)
[2022-09-02] MEDS ORDERED: ALBU0.0912 INH ×2 (13:18→13:19)
[2022-09-02] MEDS ORDERED: ASCO500T95 GT (13:21)
[2022-09-02] MEDS ORDERED: BISA-218 RC (13:23)
--- NOTE | 2022-09-02 15:18 | NUR ---
LEGAL WRITING PROFESSOR NOTIFIED OF D/C ORDER WRITTEN BY DR. GORDON. PATIENT ALREADY HAD TRANSFER ORDER FROM THIS MORNING. PER LEGAL WRITING PROFESSOR WILL PROCEED WITH TRANSFER TO TELE, AND D/C CAN BE INITIATED TOMORROW.
[2022-09-02] MEDS ORDERED: CHLO473S62 PO (15:20)
[2022-09-02] MEDS ORDERED: CRAN450T5 GT (15:23)
[2022-09-02] MEDS ORDERED: DOCU-2 GT (15:25)
--- NOTE | 2022-09-02 15:29 | NUR ---
REPORT GIVEN YEIMI/LYNDSAY FOR CONTINUITY OF CARE. PATIENT TO TRANSFER TO [facility]. PATIENT IS STABLE AT THIS TIME.
[2022-09-02] MEDS ORDERED: NA P133E RC (15:30)
[2022-09-02] MEDS ORDERED: ACET-9527 GT ×2 (15:32→15:43)
--- NOTE | 2022-09-02 15:55 | NUR ---
PATIENT TRANSFERRED TO [facility] WITH DANIEL RN, YEIMI RN, AMRITA RT, AND EDUARDO RT. PATIENT STABLE AT TIME OF TRANSFER.
--- NOTE | 2022-09-02 16:00 | NUR ---
RECEIVED REPORT FROM ICU NURSE. PATIENT STABLE. ASSESSMENT AND MONITORING ESTABLISHED FOR CONTINUITY OF CARE.
[2022-09-02] MEDS ORDERED: METO25TA GT (16:36)
[2022-09-02] MEDS ORDERED: MULT-1328 GT (16:40)
[2022-09-02] MEDS ORDERED: MAGN400S60 GT (16:42)
[2022-09-02] MEDS ORDERED: ONDA-188 GT (16:43)
[2022-09-02] MEDS ORDERED: PANT40EC GT (16:47)
[2022-09-02] MEDS ORDERED: NUTR30LI3 GT (16:50)
[2022-09-02] MEDS ORDERED: [UNRECOGNIZED DRUG - CODE] SUBQ (16:54)
[2022-09-02] MEDS ORDERED: ATRMDI INH (16:59)
[2022-09-02] MEDS ORDERED: KEP500L GT (17:01)
--- NOTE | 2022-09-02 19:30 | NUR ---
EMPTIED GLASER BAG 700ML. ENDORSED PATIENT TO NIGHTSHIFT NURSE FOR CONTINUITY OF CARE.
--- NOTE | 2022-09-02 19:35 | NUR ---
RECEIVED PT W/O FEEDING , PER AM NURSE THERE IS LEAKAGE FROM THE G TUBE SITE - SO THAT THEY HOLD IT FOR AWHILE , PAD DRESSING FROM G TUBE SITE DRY AND INTACT - WILL INFORM DR. MARIE . Addendum: 09/03/22 at 0333 by Coty Stoll RN DR. HAINES INFORM ABOUT THE LEAKAGE , NO REPONSE FROM HIM , REFER TO DR. GORDON PER DR. GORDON RESUME FEEDING AT HALF OF THE RATE , IF THE LEAKAGE PERSIST RE INFORM DR. HAINES . - WILL CARRY OUT .
--- NOTE | 2022-09-02 22:28 | NUR ---
PER PHARMACY WAIT THE RESULT OF GENTA THROUGH .
--- NOTE | 2022-09-02 22:32 | NUR ---
DR BAKER AWARE PT'S HAS HR OF 46 - PER DR. BAKER NO FURTHER ORDERS
[2022-09-03] VITALS (7 sets, daily range): BP systolic 133–168; BP diastolic 60–92
--- NOTE | 2022-09-03 00:17 | NUR ---
per pharmacist - tell to the doctor another genta through , before to resume the genta - will refer to yardage control operator forming . Addendum: 09/03/22 at 0030 by Coty Stoll RN AND TIGRE JO ORDERED - DR. ISIDRO AGREED , WILL CARRY OUT .
[2022-09-03] MEDS: Z-GUARD PASTE TP SCH ×2 (01:00→13:32)
[2022-09-03] MEDS: THERAHONEY GEL 42.5 GM TP SCH ×2 (01:00→13:32)
[2022-09-03] MEDS: SKINTEGRITY HYDROGEL TP SCH ×2 (01:00→13:31)
--- NOTE | 2022-09-03 01:49 | NUR ---
per pharmacist hold the genta - charge nurse inform
--- NOTE | 2022-09-03 04:00 | NUR ---
DRESSING PAD OVER THE G SITE CHECK - IT IS ALMOST DRY , NO PROGRESSING LEAKAGE NOTED - WILL ENDORSE - STILL NO RESPONSE FROM DOCTOR HAINES
--- NOTE | 2022-09-03 06:00 | NUR ---
O2 SAT 99 % NO S/SX OF ACUTE DISTRESS NOTED , WILL CONT. TO MONITOR
--- NOTE | 2022-09-03 07:38 | NUR ---
endorsed pt for cont. of care o2 sat 100 % , i endorsed to Alex - the g site pad is not not fully soak , no much leakage noted on the g site - feeding tolerating , i endorse to timi robles i inform dr. cabrales the feeding is only 25 cc - endorsed to travis rn to inform dr. hernandez that the feeding is well tolerated and no much leakage - alex capellan verbalizes understanding .
[2022-09-03] MEDS: DOCUSATE 100 MG/10 ML UDC GT SCH (11:05)
[2022-09-03 11:12] LABS: BASOPHILS % (AUTO) 0.3 % (0.0-2.0); EOSINOPHILS # (AUTO) 0.3 K/uL (0-0.4); EOSINOPHILS % (AUTO) 2.2 % (0.0-4.0); HEMATOCRIT 31.7 % (36-52); HEMOGLOBIN 9.9 g/dL (12.0-18.0); LYMPHOCYTES # (AUTO) 2.5 K/uL (2.0-11.5); LYMPHOCYTES % (AUTO) 18.6 % (20.5-51.1); MEAN CORPUSCULAR HEMOGLOBIN 28 pg (27-31); MEAN CORPUSCULAR HGB CONC 31 g/dL (33-37); MEAN CORPUSCULAR VOLUME 89.3 fL (80-94); MONOCYTES # (AUTO) 0.6 K/uL (0.8-1.0); MONOCYTES % (AUTO) 4.5 % (1.7-9.3); NEUTROPHILS # (AUTO) 10.1 K/uL (1.8-7.7); NEUTROPHILS % (AUTO) 74.4 % (42.2-75.2); PLATELET COUNT (AUTO) 298 K/uL (140-450); RED BLOOD CELL COUNT(AUTO) 3.55 MIL/uL (4.20-6.10); RED CELL DISTRIBUTION WIDTH 18.1 % (11.6-13.7); WHITE BLOOD COUNT (AUTO) 13.6 K/uL (4.8-10.8)
[2022-09-03] MEDS: levETIRAcetam 500 MG in NACL 0.9% 100 ML IV SCH ×2 (11:12→21:09)
[2022-09-03] MEDS: POLYETHYLENE GLYCOL 17 GM/PKT GT SCH (11:15)
[2022-09-03] MEDS: SENNA 8.6 MG TAB GT SCH ×2 (11:15→21:09)
[2022-09-03] MEDS: ENOXAPARIN 40 MG/0.4 ML SYR SUBQ SCH (11:17)
[2022-09-03 11:34] LABS: ANION GAP 12.7 (8-16); CARBON DIOXIDE 23.1 mmol/L (21-32); POTASSIUM 3.8 mmol/L (3.5-5.1)
--- NOTE | 2022-09-03 15:50 | NUR ---
09/03/22 RD FOLLOW UP COMPLETED PLEASE REFER TO NUTRITION ASSESSMENT UNDER CARE ACTIVITY FOR ESTIMATED NUTRITIONAL NEEDS. 1. CONTINUE JEVITY 1.2 AT GOAL RATE 50 ML/HR, FWF 200 ML Q6H TOLERATED, WITH PROSOURCE BID (PROVIDES 120 KCAL AND 30 GM PROTEIN DAILY) FOR WOUND SUPPORT - WITH PROSOURCE BID, PROVIDES 1200 ML TOTAL VOLUME, 1560 KCAL, 96 GM PROTEIN AND 1768 ML FREE WATER DAILY MEETING 93% ESTIMATED KCAL NEEDS AND 100% ESTIMATED PROTEIN NEEDS; ADEQUATE 2. MONITOR GI SYMPTOMS, GASTRIC RESIDUALS AND NUTRITION RELATED LAB VALUES 3. CONSULT RD PRN 4. RD TO FOLLOW-UP 3-5 DAYS, MODERATE RISK REVIEWED BY MARC HERNANDEZ RD
--- NOTE | 2022-09-03 19:36 | NUR ---
ENDORSE PATIENT IN STABLE CONDITION TO PM SHIFT NURSE WHILE PIV L. FOREARM TKO/SALINE LOCK. PATIENT ON CFSHL-SY-FUXJ ON FIO2 24, TUBE-FEEDING GLUCERNA 30ML/HR W/ WATER FLUSH 100ML Q6HR. PATIENT IS ON CONTACT ISOLATION FOR ESBL IN URINE
--- NOTE | 2022-09-03 19:40 | NUR ---
RECEIVED PATIENT FOR CONTINUITY OF CARE. PATIENT IS TRACH TO VENT, SETTING FI02 24, VT 500, RATE 14 AND PEEP 5. PATIENT HOB ELEVATED FOR ASPIRATION PRECAUTION, PATIENT ON TUBE FEEDING. NO SIGNS OF DISTRESS NOTED, NO SIGNS OF PAIN NOTED. BED IN LOW AND LOCKED POSITION.
--- NOTE | 2022-09-03 21:10 | NUR ---
SCHEDULED MEDICATIONS GIVEN ORDERED.
[2022-09-04] VITALS: BP 134/59
--- NOTE | 2022-09-04 00:10 | NUR ---
VITALS T 97.5, P 60, BP 134/59, RESP 15, O2 SATS 97%. HOB ELEVATED FOR ASPIRATION PRECAUTIONS, MOUTH CARE DONE, NO SIGNS OF DISTRESS NOTED. ALL SAFETY MEASURES IN PLACE.
[2022-09-04] MEDS: SKINTEGRITY HYDROGEL TP SCH ×2 (01:26→13:42)
[2022-09-04] MEDS: Z-GUARD PASTE TP SCH ×2 (01:27→13:43)
[2022-09-04] MEDS: THERAHONEY GEL 42.5 GM TP SCH ×2 (01:27→13:43)
--- NOTE | 2022-09-04 01:30 | NUR ---
GTUBE SITE CHECKED, NO LEAKAGE NOTED FROM SITE, DRESSING CHANGED.
[2022-09-04 04:00] VITALS: BP 130/53
--- NOTE | 2022-09-04 04:30 | NUR ---
VITALS T 97.8, P 57, BP 130/53, RESP 15 AND O2 SATS 98%. HOB ELEVATED, NO SIGNS OF DISTRESS NOTED, TUBE FEEDING RUNNING @ 30ML/HR. ALL SAFETY MEASURES IN PLACE.
--- NOTE | 2022-09-04 05:21 | NUR ---
BEDSIDE CARE DONE, MOUTH CARE DONE. PATIENT TOLERATED WELL. PATIENT IN NO ACUTE DISTRESS, SEIZURE PRECAUTIONS MAINTAINED.
--- NOTE | 2022-09-04 07:15 | NUR ---
ENDORSED PATIENT TO DAY NURSE FOR CONTINUITY OF CARE. PATIENT IN STABLE CONDITION.
--- NOTE | 2022-09-04 07:20 | NUR ---
RECEIVED REPORT FROM NIGHTSHIFT NURSE. PT IS ASLEEP IN BED, WOKE TO NAME AND TOUCH. PT IS ON TRACH-VENT: FIO2: 24, VT:500, RATE:14. PT HAVE GLASER CATH. IV TO LEFT AC, 18G. WOUND TO COCCYX, CHEST, RIGHT LOWER EXTREMITY AND LEFT LOWER EXTREMITY. NO FURTHER NEEDS ARE TO BE MET AT THIS TIME. WILL CONTINUE WITH CARE. BED IN LOWEST POSITION, SIDE RAILS UP.
[2022-09-04 07:38] LABS: ANION GAP 13.5 (8-16); CARBON DIOXIDE 22.1 mmol/L (21-32); CREATININE 1.1 mg/dL (0.6-1.3); POTASSIUM 3.6 mmol/L (3.5-5.1)
[2022-09-04 08:00] VITALS: BP 125/75
[2022-09-04] MEDS: DOCUSATE 100 MG/10 ML UDC GT SCH (09:25)
[2022-09-04] MEDS: POLYETHYLENE GLYCOL 17 GM/PKT GT SCH (09:25)
[2022-09-04] MEDS: ENOXAPARIN 40 MG/0.4 ML SYR SUBQ SCH (09:25)
[2022-09-04] MEDS: levETIRAcetam 500 MG in NACL 0.9% 100 ML IV SCH (09:26)
[2022-09-04] MEDS: SENNA 8.6 MG TAB GT SCH (09:26)
[2022-09-04] MEDS: GENTAMICIN 80 MG in DEXTROSE 5% 100 ML IV SCH ×2 (10:00→18:15)
--- NOTE | 2022-09-04 11:00 | NUR ---
RECEIVED ORDER FOR PT TO GO BACK TO SNF. FAXED TO [facility] LOC[facility] AT [address] [place] [id number]. SPOKE WITH BRAD AT [facility] PT WAS ACCEPTED BACK AND WILL BE GOING TO ROOM 6- UNDER DR GORDON. TRANSPORTATION WAS SET UP WITH SANDI AT [facility] TRANSPORT WITH A 1400 STAFFING EXECUTIVE TIME BUT I INFORMED THEM TO CONTACT NURSING STATION WITH UPDATED STAFFING EXECUTIVE TIME. Addendum: 09/04/22 at 1118 by ADEBAYO MOSES CM NURSE ALLY AWARE OF THE ABOVE INFORMATION CALLED MOTHER / CALLED MULTIPLE TIME WITH NO ANSWER AND WAS UNABLE TO LEAVE VOICE MAIL DUE TO IT NOT BEING SETUP.
[2022-09-04 12:00] VITALS: BP 129/69
[2022-09-04 12:37] VITALS: BP 125/75
--- NOTE | 2022-09-04 13:30 | NUR ---
SPOKE TO [facility] REGARDING PT TRANSFER. REQUESTING CURRENT WBC RESULTS BEFORE DISCHARGE. WBC RESULTS OBTAINED, [facility] UPDATED. AWAITING UPDATED INFORMATION ON TRANSFER FROM CASE MANAGEMENT. Addendum: 09/04/22 at 2012 by EASTON CANALES RN [facility] REQUESTING CURRENT WBC RESULTS BEFORE TRANSFER.
[2022-09-04 14:19] LABS: BASOPHILS # (AUTO) 0.1 K/uL (0.00-0.22); BASOPHILS % (AUTO) 0.4 % (0.0-2.0); EOSINOPHILS # (AUTO) 0.4 K/uL (0-0.4); HEMATOCRIT 31.1 % (36-52); HEMOGLOBIN 9.7 g/dL (12.0-18.0); LYMPHOCYTES # (AUTO) 3.2 K/uL (2.0-11.5); LYMPHOCYTES % (AUTO) 24.9 % (20.5-51.1); MEAN CORPUSCULAR HEMOGLOBIN 28 pg (27-31); MEAN CORPUSCULAR HGB CONC 31 g/dL (33-37); MEAN CORPUSCULAR VOLUME 89.6 fL (80-94); MONOCYTES # (AUTO) 0.7 K/uL (0.8-1.0); MONOCYTES % (AUTO) 5.7 % (1.7-9.3); NEUTROPHILS # (AUTO) 8.6 K/uL (1.8-7.7); PLATELET COUNT (AUTO) 331 K/uL (140-450); RED BLOOD CELL COUNT(AUTO) 3.47 MIL/uL (4.20-6.10); RED CELL DISTRIBUTION WIDTH 18.3 % (11.6-13.7)
[2022-09-04 16:00] VITALS: BP 139/75
--- NOTE | 2022-09-04 19:11 | NUR ---
PT ASLEEP IN BED, WOKE TO NAME AND TOUCH. VITAL SIGNS STABLE. ENDORSED TO NIGHTSHIFT NURSE FOR CONTINUITY OF CARE.
--- NOTE | 2022-09-04 19:30 | NUR ---
HAND-OFF REPORT RECEIVED FROM EASTON GROSSMAN. D/C TO [facility] PENDING WBC RESULTS AND CASE MANGEMENT ARRANGEMENT FOR TRANSPORT. PT RECEIVED TRACH TO VENT. NO CHANGE IN SETTINGS. JEVITY 1.2 TO GTUBE. GOAL 50 PRESENTLY AT 40. NO RESIDUAL. GLASER TO GRAVITY FLOW. FLA 18GA INTACT. PT ON ANTIBIOTIC THERAPY. SR. PT RECEIVED IN BED AWAKE. SUCTIONED LIGHT YELLOW THICK MUCOUS MODERATE AMT. NOTED LAST WBC 13.0
--- NOTE | 2022-09-04 20:45 | NUR ---
[facility] ARRIVED FOR PT TRANSPORT. VERIFIED WITH [facility] OUR LAST WBC RESULT OF 13.0 TRENDING DOWN. CHARGE NURSE MICAH VERIFIED OK FOR TRANSPORT. DOCUMENTS PREPARED AND [facility] CHAUNCEY MACKENZIE BRIEFED..PT TO CONTINUE ON GENTAMYCIN FOR 9 MORE DAYS SPECIFIED IN DISCHARGE REPORT. LAST SET OF VITALS BEFORE D/C [id number].
--- NOTE | 2022-09-04 20:59 | NUR ---
1V 18 GA LFA LEFT IN PLACE FOR ANTIBIOTIC THERAPY AT [facility]. SITE BENIGN
--- NOTE | 2022-09-04 21:00 | NUR ---
D/C VIA [facility] TRANSPORTING TO [facility].
== END 2022-09-04 21:00 | DRG 720 ==
LOC: MED 21:37 → MTU 08-29 00:59 → MIC 08-29 05:54 → MTU 09-02 15:50
PROVIDERS: ADMIT Hospitalist; ATTEND Hospitalist
PROC: 5A1955Z Respiratory Ventilation, Greater than 96 Consecutive Hours (ICD-10-PCS; principal; 2022-08-29)
PROC: 02HV33Z Insertion of Infusion Device into Superior Vena Cava, Percutaneous Approach (ICD-10-PCS; 2022-08-29)
PROC: 0T2BX0Z Change Drainage Device in Bladder, External Approach (ICD-10-PCS; 2022-08-29)
DX: A41.9 Sepsis, unspecified organism (principal); R65.21 Severe sepsis with septic shock; G82.50 Quadriplegia, unspecified; G93.1 Anoxic brain damage, not elsewhere classified; J96.10 Chronic respiratory failure, unspecified whether with hypoxia or hypercapnia; N39.0 Urinary tract infection, site not specified; G40.909 Epilepsy, unspecified, not intractable, without status epilepticus; Z16.10 Resistance to unspecified beta lactam antibiotics; B96.1 Klebsiella pneumoniae [K. pneumoniae] as the cause of diseases classified elsewhere; R13.10 Dysphagia, unspecified; I10 Essential (primary) hypertension; E87.0 Hyperosmolality and hypernatremia; L97.909 Non-pressure chronic ulcer of unspecified part of unspecified lower leg with unspecified severity; Z90.49 Acquired absence of other specified parts of digestive tract; Z93.1 Gastrostomy status; Z99.11 Dependence on respirator [ventilator] status
CPT/HCPCS: 36415; 36600; 71045; 74018; 74250; 80048; 80053; 80170; 80202; 81001; 82550; 82803; 82948; 83605; 83690; 83735; 83880; 84484; 85025; 87040; 87081; 87086; 94002; 94003; 94640; 96360; 99291; 99292; A6248; J1580; J1650; J1953; J2185; J2270; J2543; J3372; J3480; J3490; J7030; J7060; Q0092

== ENCOUNTER 2023-07-30 07:03 | Emergency (ER) | payer OTHER ==
[~2023-07-30] VITALS: Ht 170.2 cm; Wt 113.4 kg
[~2023-07-30 07:03] MED LIST: ACET-2619 GT; ACET-9527 GT; ALBU0.0912 INH; ASCO500T95 GT; ATRMDI INH; BISA-218 RC; CHLO473S62 PO; CRAN450T5 GT; DOCU-2 GT; GENT10SO8 IV; KEP500L GT; LACT1CAP92 GT; MAGN400S60 GT; MULT-1328 GT; NA P133E RC; NUTR30LI3 GT; ONDA-188 GT; PANT40EC GT; [UNRECOGNIZED DRUG - CODE] SUBQ
[2023-07-30 07:10] VITALS: BP 136/75; PULSE 86; RESP 16; TEMP 98.7; O2SAT 100
[2023-07-30 11:55] VITALS: BP 127/41; PULSE 61; RESP 16; O2SAT 98
== END 2023-07-30 11:55 | disposition home or self-care (01) ==
LOC: MED 07:03
DX: K94.23 Gastrostomy malfunction (principal); I10 Essential (primary) hypertension; Z86.69 Personal history of other diseases of the nervous system and sense organs; Z79.899 Other long term (current) drug therapy
CPT/HCPCS: 43762; 99285

== ENCOUNTER 2023-08-03 14:49 | Emergency (ER) | payer OTHER ==
[~2023-08-03] VITALS: Ht 167.6 cm; Wt 81.6 kg
[2023-08-03 14:49] VITALS: BP 138/83; PULSE 61; RESP 16; TEMP 98.1; O2SAT 100
[2023-08-03 18:19] VITALS: PULSE 78; O2SAT 100
[2023-08-03 19:35] VITALS: BP 135/82; PULSE 72; RESP 18; TEMP 98; O2SAT 99
== END 2023-08-03 19:41 | disposition home or self-care (01) ==
LOC: MED 14:49
DX: K94.23 Gastrostomy malfunction (principal); Z79.899 Other long term (current) drug therapy
CPT/HCPCS: 43762; 99285

== ENCOUNTER 2023-11-17 06:00 | Inpatient (IN) | payer OTHER ==
[~2023-11-17] VITALS: Ht 172.7 cm; Wt 108.0 kg
[2023-11-17] VITALS (20 sets, daily range): BP systolic 81–127; BP diastolic 26–98; PULSE 88–120; RESP 16–25; TEMP 98.5–101.6; O2SAT 94–100
[~2023-11-17 06:00] MED LIST changes: -BISA-218 RC; +BISA-279 RC
[2023-11-17 06:59] LABS: APPEARANCE,URINE CLEAR (CLEAR); BILIRUBIN,URINE NEGATIVE (NEGATIVE); BLOOD, URINE 3+ (NEGATIVE); COLOR,URINE YELLOW (YELLOW); LEUKOCYTE ESTERASE ,URINE 2+ (NEGATIVE); NITRITE, URINE NEGATIVE (NEGATIVE); PROTEIN,URINE 2+ (NEGATIVE); UGLUCOSE 3+ (NEGATIVE); UROBILINOGEN,URINE 0.2 EU/dL (0.2 - 1)
[2023-11-17 07:06] LABS: WBC,URINE TOO MANY TO COUNT /HPF (0-5)
[2023-11-17 07:07] LABS: BACTERIA,URINE >30 (MANY) /HPF (None Seen); MUCUS,URINE None Seen /LPF (None Seen); RBC,URINE >20 (MANY) /HPF (0-5); SQUAMOUS EPITHELIAL CELL,UR 4-10 (MOD) /LPF (0-3 (FEW))
[2023-11-17] MEDS ORDERED: GENTAMICIN PER PHARMACY MC PRN (07:15)
[2023-11-17 07:22] LABS: FLU A ANTIGEN negative (NEGATIVE); FLU B ANTIGEN negative (NEGATIVE)
[2023-11-17] MEDS ORDERED: GENTAMICIN 80 MG/2 ML VIAL ONE (07:28)
[2023-11-17] MEDS ORDERED: CRUSHER, PILL MC ONE (07:34)
[2023-11-17] MEDS: ACETAMINOPHEN EXTRA STRENGTH 500 MG TAB GT ONE (07:37)
[2023-11-17 07:48] LABS: HEMATOCRIT 47.5 % (36-52); MEAN CORPUSCULAR HEMOGLOBIN 30 pg (27-31); MEAN CORPUSCULAR HGB CONC 30 g/dL (33-37); MEAN CORPUSCULAR VOLUME 100.9 fL (80-94); PLATELET COUNT (AUTO) 254 K/uL (140-450); RED CELL DISTRIBUTION WIDTH 19.1 % (11.6-13.7)
[2023-11-17] MEDS ORDERED: IPRA12.9 INH ×2 (07:58)
[2023-11-17] MEDS ORDERED: ALBU0.0912 INH (07:58)
[2023-11-17] MEDS ORDERED: MEDI30SO GT (07:58)
[2023-11-17] MEDS ORDERED: [UNRECOGNIZED DRUG - CODE] TOP (07:58)
[2023-11-17] MEDS ORDERED: ARGI4.5P3 GT (07:58)
[2023-11-17] MEDS ORDERED: FERR220S GT (07:58)
[2023-11-17] MEDS ORDERED: ZINC220T3 GT (07:58)
[2023-11-17] MEDS ORDERED: NUTR887L11 GT (07:58)
[2023-11-17 08:12] LABS: LACTIC ACID 4.9 mmol/L (0.4-2.0)
[2023-11-17 08:17] LABS: ANION GAP 18.9 (8-16); CREATININE 2.8 mg/dL (0.6-1.3); POTASSIUM 3.9 mmol/L (3.5-5.1)
[2023-11-17] MEDS: NACL 0.9% 1,000 ML IV ONE ×2 (08:17→08:29)
[2023-11-17 08:19] LABS: ALANINE AMINOTRANSFERASE 46 U/L (12-78); ALBUMIN 2.8 g/dL (3.4-5.0); ALKALINE PHOSPHATASE 221 U/L (50-136); ASPARTATE AMINOTRANSFERASE 16 U/L (15-37); BILIRUBIN,DIRECT 0.3 mg/dL (0.0-0.3); CREATINE KINASE, TOTAL 1155 U/L (39-308); TOTAL BILIRUBIN 0.8 mg/dL (0.0-1.0); TOTAL PROTEIN, SERUM 9.4 g/dL (6.4-8.2)
[2023-11-17 08:23] LABS: ACETONE, SERUM Negative (NEGATIVE)
[2023-11-17 08:43] LABS: INR 1.01 (0.8-1.2); PROTHROMBIN TIME 10.6 secs (10.8-13.4)
[2023-11-17] MEDS: KCL 20 MEQ IN 100 mL PREMIX 100 ML IV ONE (08:49)
[2023-11-17 09:05] LABS: LYMPHOCYTES % (MANUAL) 13 % (20-46); MONOCYTES % (MANUAL) 7 % (5-12)
[2023-11-17 09:06] LABS: BASOPHILS % (MANUAL) 1 % (0-2); EOSINOPHILS % (MANUAL) 2 % (0-4); PLATELET ESTIMATE GIANT PLATELET SEEN
[2023-11-17] MEDS: NACL 0.9% 500 ML IV ONE (09:21)
[2023-11-17] MEDS: GENTAMICIN 120 MG in DEXTROSE 5% 100 ML IV ONE (09:29)
[2023-11-17] MEDS: INSULIN REGULAR, HUMAN 100 UNIT in NACL 0.9% 100 ML IV ONE (09:56)
[2023-11-17] MEDS ORDERED: PIPERACILLIN/TAZOBACTAM 3.375 GM in DEXTROSE 5% 50 ML IV SCH (12:00)
[2023-11-17] MEDS ORDERED: ONDANSETRON 4 MG/2 ML VIAL IVP PRN (12:00)
[2023-11-17] MEDS ORDERED: MAG SULF 2000 MG/WATER PREMIX 50 ML IV PRN (12:00)
[2023-11-17] MEDS ORDERED: POTASSIUM CHLORIDE 10 MEQ TABER PO PRN (12:00)
[2023-11-17] MEDS ORDERED: LACTATED RINGERS 1,000 ML IV SCH (12:00)
[2023-11-17] MEDS ORDERED: HYDROcodone/APAP 5/325 MG 1 TAB TAB PO PRN (12:00)
[2023-11-17] MEDS ORDERED: LORazepam 1 MG TAB PO PRN (12:00)
[2023-11-17] MEDS ORDERED: ZOLPIDEM 5 MG TAB PO PRN (12:00)
[2023-11-17] MEDS ORDERED: bisacodyL 10 MG SUPP RC PRN (12:10)
[2023-11-17] MEDS: ALBUTEROL SULFATE/IPRATROPIU 3 ML SOL IH SCH (13:03)
[2023-11-17] MEDS: NACL 0.45% 1,000 ML IV SCH (14:25)
[2023-11-17] MEDS ORDERED: INSULIN REGULAR, HUMAN 100 UNIT in NACL 0.9% 100 ML IV PRN (14:40)
[2023-11-17] MEDS: BLOOD GLUCOSE MONITORING 1 DEV DEV FS SCH ×2 (14:45→19:30)
[2023-11-17] MEDS: DEXT 5% / NACL 0.45% 1,000 ML IV SCH (14:45)
[2023-11-17] MEDS: PIPERACILLIN/TAZOBACTAM 2.25 GM in DEXTROSE 5% 50 ML IV SCH (14:54)
[2023-11-17 15:22] LABS: ANION GAP 20.2 (8-16); CALCIUM 9.7 mg/dL (8.5-10.1); CARBON DIOXIDE 24.3 mmol/L (21-32); CREATININE 2.6 mg/dL (0.6-1.3); POTASSIUM 4.5 mmol/L (3.5-5.1)
[2023-11-17 15:35] LABS: MAGNESIUM 3.5 mg/dL (1.8-2.4); PHOSPHORUS 2.4 mg/dL (2.5-4.9)
[2023-11-17] MEDS: ACETAMINOPHEN 325 MG TAB PO PRN (17:12)
[2023-11-17] MEDS: levETIRAcetam 100 MG/ML ORASYR GT SCH (20:38)
[2023-11-17] MEDS: DOCUSATE 100 MG/10 ML UDC GT SCH (20:41)
[2023-11-17 20:55] LABS: ANION GAP 17.9 (8-16); CALCIUM 9.6 mg/dL (8.5-10.1); CARBON DIOXIDE 25.3 mmol/L (21-32); CREATININE 2.6 mg/dL (0.6-1.3); POTASSIUM 3.2 mmol/L (3.5-5.1)
[2023-11-17 21:14] LABS: MAGNESIUM 3.4 mg/dL (1.8-2.4); PHOSPHORUS 2.3 mg/dL (2.5-4.9)
[2023-11-17] MEDS: INSULIN REGULAR, HUMAN 100 UNIT in NACL 0.9% 100 ML IV SCH (22:58)
[2023-11-18] VITALS (32 sets, daily range): BP systolic 59–126; BP diastolic 54–105; PULSE 86–119; RESP 16–24; TEMP 97.7–102; O2SAT 59–99
[2023-11-18 00:38] LABS: ANION GAP 19.1 (8-16); CALCIUM 9.6 mg/dL (8.5-10.1); CARBON DIOXIDE 24.9 mmol/L (21-32); CREATININE 2.8 mg/dL (0.6-1.3)
[2023-11-18 00:43] LABS: MAGNESIUM 3.2 mg/dL (1.8-2.4); PHOSPHORUS 2.6 mg/dL (2.5-4.9)
[2023-11-18] MEDS: ACETAMINOPHEN 100 ML IV PRN (02:01)
[2023-11-18 04:17] LABS: BASOPHILS % (AUTO) 0.2 % (0.0-2.0); EOSINOPHILS # (AUTO) 0.1 K/uL (0-0.4); EOSINOPHILS % (AUTO) 0.4 % (0.0-4.0); HEMATOCRIT 41.7 % (36-52); LYMPHOCYTES # (AUTO) 1.4 K/uL (2.0-11.5); LYMPHOCYTES % (AUTO) 9.5 % (20.5-51.1); MEAN CORPUSCULAR HEMOGLOBIN 30 pg (27-31); MEAN CORPUSCULAR HGB CONC 31 g/dL (33-37); MEAN CORPUSCULAR VOLUME 95.5 fL (80-94); MONOCYTES # (AUTO) 0.4 K/uL (0.8-1.0); MONOCYTES % (AUTO) 2.9 % (1.7-9.3); NEUTROPHILS # (AUTO) 12.5 K/uL (1.8-7.7); PLATELET COUNT (AUTO) 168 K/uL (140-450); RED BLOOD CELL COUNT(AUTO) 4.37 MIL/uL (4.20-6.10); RED CELL DISTRIBUTION WIDTH 17.9 % (11.6-13.7); WHITE BLOOD COUNT (AUTO) 14.3 K/uL (4.8-10.8)
[2023-11-18 04:45] LABS: ALBUMIN 2.2 g/dL (3.4-5.0); ANION GAP 17.4 (8-16); CALCIUM 9.5 mg/dL (8.5-10.1); CARBON DIOXIDE 26.6 mmol/L (21-32); CREATININE 2.9 mg/dL (0.6-1.3); MAGNESIUM 3.2 mg/dL (1.8-2.4); PHOSPHORUS 2.4 mg/dL (2.5-4.9); TOTAL BILIRUBIN 0.6 mg/dL (0.0-1.0); TOTAL PROTEIN, SERUM 8.1 g/dL (6.4-8.2)
[2023-11-18] MEDS: KCL 20 MEQ IN 100 mL PREMIX 200 ML IV PRN (06:04)
[2023-11-18] MEDS ORDERED: VANCOMYCIN PER PHARMACY MC PRN (06:30)
[2023-11-18] MEDS ORDERED: DEXTROSE 50% 50 ML SYR IVP PRN (06:35)
[2023-11-18] MEDS: DEXT 5% / NACL 0.2% 1,000 ML IV SCH (06:52)
[2023-11-18] MEDS: BLOOD GLUCOSE MONITORING 1 DEV DEV FS SCH (06:52)
[2023-11-18] MEDS: INSULIN LANTUS 100 UNITS/ML 10 ML VIAL SUBQ SCH ×3 (06:53→21:11)
[2023-11-18] MEDS ORDERED: VANCOMYCIN HCL 1.25 GM in DEXTROSE 5% 250 ML IV SCH (07:00)
[2023-11-18] MEDS: VANCOMYCIN HCL 1.25 GM in DEXTROSE 5% 250 ML IV SCH (08:26)
[2023-11-18] MEDS: PANTOPRAZOLE 40 MG INJ VIAL IVP SCH (08:31)
[2023-11-18] MEDS: levETIRAcetam 500 MG in NACL 0.9% 100 ML IV SCH (08:48)
[2023-11-18] MEDS ORDERED: DOCUSATE SODIUM 100 MG GELCAP PO SCH (09:00)
[2023-11-18] MEDS: ALGINATE DRESSING MC SCH (09:26)
[2023-11-18] MEDS: INSULIN LISPRO SLIDING SCALE 100 UNITS/ML VIAL SUBQ PRN (09:37)
[2023-11-18] MEDS ORDERED: HYDRAGUARD CREAM TP PRN (12:50)
[2023-11-18] MEDS: FOAM DRESSING TP SCH (13:22)
[2023-11-18] MEDS: ALGINATE ROPE MC SCH (13:22)
[2023-11-18] MEDS: HYDRAGUARD CREAM TP SCH (13:23)
[2023-11-18] MEDS: GAUZE TP SCH (13:23)
[2023-11-18] MEDS: THERAHONEY GEL 42.5 GM TP SCH (13:23)
[2023-11-18 14:32] LABS: ANION GAP 16.4 (8-16); CARBON DIOXIDE 26.3 mmol/L (21-32); CREATININE 2.9 mg/dL (0.6-1.3); POTASSIUM 3.7 mmol/L (3.5-5.1)
[2023-11-18] MEDS ORDERED: INSULIN LANTUS 100 UNITS/ML 10 ML VIAL SUBQ SCH (21:00)
[2023-11-18] MEDS: MEDS-TO-BEDS MC SCH (21:13)
[2023-11-19] VITALS (32 sets, daily range): BP systolic 89–124; BP diastolic 43–76; PULSE 80–93; RESP 16–26; TEMP 97.3–98.8; O2SAT 94–100
[2023-11-19 05:30] LABS: BASOPHILS # (AUTO) 0.2 K/uL (0.00-0.22); BASOPHILS % (AUTO) 1.6 % (0.0-2.0); EOSINOPHILS # (AUTO) 0.3 K/uL (0-0.4); EOSINOPHILS % (AUTO) 2.6 % (0.0-4.0); HEMOGLOBIN 10.9 g/dL (12.0-18.0); LYMPHOCYTES # (AUTO) 1.3 K/uL (2.0-11.5); LYMPHOCYTES % (AUTO) 11.5 % (20.5-51.1); MEAN CORPUSCULAR HEMOGLOBIN 30 pg (27-31); MEAN CORPUSCULAR HGB CONC 31 g/dL (33-37); MEAN CORPUSCULAR VOLUME 95.4 fL (80-94); MONOCYTES # (AUTO) 0.3 K/uL (0.8-1.0); MONOCYTES % (AUTO) 2.7 % (1.7-9.3); NEUTROPHILS # (AUTO) 9.4 K/uL (1.8-7.7); NEUTROPHILS % (AUTO) 81.6 % (42.2-75.2); PLATELET COUNT (AUTO) 100 K/uL (140-450); RED BLOOD CELL COUNT(AUTO) 3.67 MIL/uL (4.20-6.10); WHITE BLOOD COUNT (AUTO) 11.5 K/uL (4.8-10.8)
[2023-11-19 06:06] LABS: ALBUMIN 1.8 g/dL (3.4-5.0); ANION GAP 16.4 (8-16); CALCIUM 8.8 mg/dL (8.5-10.1); CARBON DIOXIDE 23.9 mmol/L (21-32); CREATININE 2.6 mg/dL (0.6-1.3); MAGNESIUM 2.9 mg/dL (1.8-2.4); POTASSIUM 3.3 mmol/L (3.5-5.1); TOTAL BILIRUBIN 0.5 mg/dL (0.0-1.0); TOTAL PROTEIN, SERUM 6.8 g/dL (6.4-8.2)
[2023-11-19] MEDS: KCL 20 MEQ IN 100 mL PREMIX 100 ML IV SCH (06:48)
[2023-11-19] MEDS: KCL 20 MEQ IN 100 mL PREMIX 100 ML IV ONE (07:03)
[2023-11-19] MEDS ORDERED: PROPOFOL 200 MG/20 ML VIAL IV ONE (07:45)
[2023-11-19] MEDS ORDERED: HYDROmorphone 1 MG/ML AMP IVP PRN (08:25)
[2023-11-19] MEDS ORDERED: ONDANSETRON 4 MG/2 ML VIAL IVP PRN (08:25)
[2023-11-19] MEDS ORDERED: INSULIN LANTUS 100 UNITS/ML 10 ML VIAL SUBQ SCH (09:00)
[2023-11-19] MEDS: INSULIN LANTUS 100 UNITS/ML 10 ML VIAL SUBQ SCH (20:51)
[2023-11-19] MEDS: MEROPENEM 500 MG in NACL 0.9% 50 ML IV SCH (21:18)
[2023-11-20] VITALS (32 sets, daily range): BP systolic 92–125; BP diastolic 58–87; PULSE 79–101; RESP 10–32; TEMP 98.2–99.3; O2SAT 94–100
[2023-11-20 05:39] LABS: BASOPHILS % (AUTO) 0.2 % (0.0-2.0); EOSINOPHILS # (AUTO) 0.3 K/uL (0-0.4); EOSINOPHILS % (AUTO) 2.3 % (0.0-4.0); HEMATOCRIT 34.9 % (36-52); HEMOGLOBIN 10.8 g/dL (12.0-18.0); LYMPHOCYTES # (AUTO) 1.4 K/uL (2.0-11.5); LYMPHOCYTES % (AUTO) 11.7 % (20.5-51.1); MEAN CORPUSCULAR HEMOGLOBIN 29 pg (27-31); MEAN CORPUSCULAR HGB CONC 31 g/dL (33-37); MEAN CORPUSCULAR VOLUME 94.5 fL (80-94); MONOCYTES # (AUTO) 0.3 K/uL (0.8-1.0); MONOCYTES % (AUTO) 2.8 % (1.7-9.3); NEUTROPHILS # (AUTO) 9.7 K/uL (1.8-7.7); PLATELET COUNT (AUTO) 97 K/uL (140-450); RED BLOOD CELL COUNT(AUTO) 3.69 MIL/uL (4.20-6.10); RED CELL DISTRIBUTION WIDTH 17.9 % (11.6-13.7); WHITE BLOOD COUNT (AUTO) 11.7 K/uL (4.8-10.8)
[2023-11-20 05:55] LABS: IRON, SERUM 53 ug/dl (50-175); TOTAL IRON BINDING CAPACITY < 36 ug/dl (250-450)
[2023-11-20 06:22] LABS: ALBUMIN 1.8 g/dL (3.4-5.0); ANION GAP 15.4 (8-16); CALCIUM 8.9 mg/dL (8.5-10.1); CARBON DIOXIDE 23.6 mmol/L (21-32); CREATININE 2.1 mg/dL (0.6-1.3); MAGNESIUM 2.8 mg/dL (1.8-2.4); TOTAL BILIRUBIN 0.6 mg/dL (0.0-1.0); TOTAL PROTEIN, SERUM 6.9 g/dL (6.4-8.2)
[2023-11-21] VITALS (32 sets, daily range): BP systolic 92–121; BP diastolic 54–75; PULSE 82–100; RESP 16–27; TEMP 98.3–99.5; O2SAT 94–100
[2023-11-21 05:37] LABS: BASOPHILS % (AUTO) 0.2 % (0.0-2.0); EOSINOPHILS # (AUTO) 0.2 K/uL (0-0.4); EOSINOPHILS % (AUTO) 1.6 % (0.0-4.0); HEMATOCRIT 32.9 % (36-52); HEMOGLOBIN 10.4 g/dL (12.0-18.0); LYMPHOCYTES # (AUTO) 1.4 K/uL (2.0-11.5); LYMPHOCYTES % (AUTO) 14.5 % (20.5-51.1); MEAN CORPUSCULAR HEMOGLOBIN 30 pg (27-31); MEAN CORPUSCULAR HGB CONC 32 g/dL (33-37); MEAN CORPUSCULAR VOLUME 94.4 fL (80-94); MONOCYTES # (AUTO) 0.3 K/uL (0.8-1.0); MONOCYTES % (AUTO) 2.8 % (1.7-9.3); NEUTROPHILS # (AUTO) 7.7 K/uL (1.8-7.7); NEUTROPHILS % (AUTO) 80.9 % (42.2-75.2); PLATELET COUNT (AUTO) 78 K/uL (140-450); RED BLOOD CELL COUNT(AUTO) 3.48 MIL/uL (4.20-6.10); RED CELL DISTRIBUTION WIDTH 17.2 % (11.6-13.7); WHITE BLOOD COUNT (AUTO) 9.6 K/uL (4.8-10.8)
[2023-11-21 06:09] LABS: ALBUMIN 1.7 g/dL (3.4-5.0); ANION GAP 12.4 (8-16); CALCIUM 8.5 mg/dL (8.5-10.1); CARBON DIOXIDE 24.8 mmol/L (21-32); CREATININE 1.6 mg/dL (0.6-1.3); MAGNESIUM 2.7 mg/dL (1.8-2.4); POTASSIUM 3.2 mmol/L (3.5-5.1); TOTAL BILIRUBIN 0.6 mg/dL (0.0-1.0); TOTAL PROTEIN, SERUM 3.9 g/dL (6.4-8.2)
[2023-11-21] MEDS: POTASSIUM CHL 20 MEQ/ 1/2 NS 1,000 ML IV SCH (10:19)
[2023-11-21] MEDS: KCL 20 MEQ IN 100 mL PREMIX 100 ML IV SCH (11:36)
[2023-11-22] VITALS (28 sets, daily range): BP systolic 91–125; BP diastolic 4–71; PULSE 72–96; RESP 16–27; TEMP 97.5–99.5; O2SAT 95–100
[2023-11-22] MEDS: FOAM DRESSING TP PRN (01:03)
[2023-11-22] MEDS: THERAHONEY GEL 42.5 GM TP PRN (01:03)
[2023-11-22] MEDS: ALGINATE ROPE MC PRN (01:04)
[2023-11-22 05:38] LABS: BASOPHILS % (AUTO) 0.3 % (0.0-2.0); EOSINOPHILS # (AUTO) 0.2 K/uL (0-0.4); EOSINOPHILS % (AUTO) 1.6 % (0.0-4.0); HEMATOCRIT 30.3 % (36-52); HEMOGLOBIN 9.5 g/dL (12.0-18.0); LYMPHOCYTES # (AUTO) 1.8 K/uL (2.0-11.5); LYMPHOCYTES % (AUTO) 13.9 % (20.5-51.1); MEAN CORPUSCULAR HEMOGLOBIN 30 pg (27-31); MEAN CORPUSCULAR HGB CONC 31 g/dL (33-37); MEAN CORPUSCULAR VOLUME 94.2 fL (80-94); MONOCYTES # (AUTO) 0.4 K/uL (0.8-1.0); MONOCYTES % (AUTO) 2.9 % (1.7-9.3); NEUTROPHILS # (AUTO) 10.7 K/uL (1.8-7.7); NEUTROPHILS % (AUTO) 81.3 % (42.2-75.2); PLATELET COUNT (AUTO) 89 K/uL (140-450); RED BLOOD CELL COUNT(AUTO) 3.21 MIL/uL (4.20-6.10); RED CELL DISTRIBUTION WIDTH 17.4 % (11.6-13.7); WHITE BLOOD COUNT (AUTO) 13.2 K/uL (4.8-10.8)
[2023-11-22 06:02] LABS: ALBUMIN 1.6 g/dL (3.4-5.0); ANION GAP 14.1 (8-16); CALCIUM 8.1 mg/dL (8.5-10.1); CARBON DIOXIDE 22.4 mmol/L (21-32); CREATININE 1.5 mg/dL (0.6-1.3); MAGNESIUM 2.5 mg/dL (1.8-2.4); POTASSIUM 3.5 mmol/L (3.5-5.1); TOTAL BILIRUBIN 0.5 mg/dL (0.0-1.0); TOTAL PROTEIN, SERUM 6.6 g/dL (6.4-8.2)
[2023-11-22] MEDS: BLOOD GLUCOSE MONITORING 1 DEV DEV FS SCH (11:39)
[2023-11-23] VITALS (31 sets, daily range): BP systolic 96–132; BP diastolic 54–76; PULSE 71–94; RESP 16–29; TEMP 97–98.7; O2SAT 94–100
[2023-11-23 06:19] LABS: HEMATOCRIT 27.9 % (36-52); HEMOGLOBIN 8.8 g/dL (12.0-18.0); MEAN CORPUSCULAR HEMOGLOBIN 30 pg (27-31); MEAN CORPUSCULAR HGB CONC 32 g/dL (33-37); MEAN CORPUSCULAR VOLUME 93.1 fL (80-94); PLATELET COUNT (AUTO) 114 K/uL (140-450); RED BLOOD CELL COUNT(AUTO) 2.99 MIL/uL (4.20-6.10); RED CELL DISTRIBUTION WIDTH 17.2 % (11.6-13.7); WHITE BLOOD COUNT (AUTO) 12.3 K/uL (4.8-10.8)
[2023-11-23 06:36] LABS: ANION GAP 14.1 (8-16); CALCIUM 7.6 mg/dL (8.5-10.1); CARBON DIOXIDE 21.4 mmol/L (21-32); CREATININE 1.2 mg/dL (0.6-1.3); POTASSIUM 3.5 mmol/L (3.5-5.1)
[2023-11-23 07:53] LABS: BASOPHILS % (MANUAL) 0 % (0-2); BLASTS, MANUAL % 0 % (0-0); EOSINOPHILS % (MANUAL) 2 % (0-4); LYMPHOCYTES % (MANUAL) 8 % (20-46); METAMYELOCYTES % 0 % (0-0); MONOCYTES % (MANUAL) 3 % (5-12); MYELOCYTES % 0 % (0-0); OTHER CELLS,MANUAL % 0 (0-0); PLASMA CELLS 0; PLATELET ESTIMATE SLIGHTLY DECREASED; PROMYELOCYTES % 0 % (0-0); SMUDGE CELLS 0
[2023-11-23 07:54] LABS: ANISOCYTOSIS 1+
[2023-11-23 10:56] LABS: BASOPHILS % (AUTO) 0.4 % (0.0-2.0); EOSINOPHILS # (AUTO) 0.2 K/uL (0-0.4); HEMATOCRIT 28.4 % (36-52); HEMOGLOBIN 9.1 g/dL (12.0-18.0); LYMPHOCYTES # (AUTO) 1.6 K/uL (2.0-11.5); LYMPHOCYTES % (AUTO) 13.7 % (20.5-51.1); MEAN CORPUSCULAR HEMOGLOBIN 30 pg (27-31); MEAN CORPUSCULAR HGB CONC 32 g/dL (33-37); MEAN CORPUSCULAR VOLUME 92.6 fL (80-94); MONOCYTES # (AUTO) 0.3 K/uL (0.8-1.0); MONOCYTES % (AUTO) 2.8 % (1.7-9.3); NEUTROPHILS # (AUTO) 9.3 K/uL (1.8-7.7); NEUTROPHILS % (AUTO) 81.1 % (42.2-75.2); PLATELET COUNT (AUTO) 125 K/uL (140-450); RED BLOOD CELL COUNT(AUTO) 3.06 MIL/uL (4.20-6.10); RED CELL DISTRIBUTION WIDTH 17.3 % (11.6-13.7); WHITE BLOOD COUNT (AUTO) 11.4 K/uL (4.8-10.8)
[2023-11-23 14:24] LABS: BASOPHILS % (AUTO) 0.2 % (0.0-2.0); EOSINOPHILS # (AUTO) 0.2 K/uL (0-0.4); EOSINOPHILS % (AUTO) 1.9 % (0.0-4.0); HEMATOCRIT 29.5 % (36-52); HEMOGLOBIN 9.2 g/dL (12.0-18.0); LYMPHOCYTES # (AUTO) 2.1 K/uL (2.0-11.5); LYMPHOCYTES % (AUTO) 17.2 % (20.5-51.1); MEAN CORPUSCULAR HEMOGLOBIN 29 pg (27-31); MEAN CORPUSCULAR VOLUME 93.6 fL (80-94); MONOCYTES # (AUTO) 0.5 K/uL (0.8-1.0); MONOCYTES % (AUTO) 3.8 % (1.7-9.3); NEUTROPHILS # (AUTO) 9.6 K/uL (1.8-7.7); NEUTROPHILS % (AUTO) 76.9 % (42.2-75.2); PLATELET COUNT (AUTO) 131 K/uL (140-450); RED BLOOD CELL COUNT(AUTO) 3.15 MIL/uL (4.20-6.10); RED CELL DISTRIBUTION WIDTH 16.9 % (11.6-13.7); WHITE BLOOD COUNT (AUTO) 12.4 K/uL (4.8-10.8)
[2023-11-23 14:35] LABS: MEAN CORPUSCULAR HGB CONC 31 g/dL (33-37)
[2023-11-24] VITALS (29 sets, daily range): BP systolic 90–135; BP diastolic 54–82; PULSE 73–97; RESP 15–31; TEMP 97.3–98.4; O2SAT 94–100
[2023-11-24 06:12] LABS: ANION GAP 12.6 (8-16); CALCIUM 7.6 mg/dL (8.5-10.1); CARBON DIOXIDE 22.5 mmol/L (21-32); POTASSIUM 3.1 mmol/L (3.5-5.1)
[2023-11-24 10:26] LABS: BASOPHILS % (AUTO) 0.2 % (0.0-2.0); EOSINOPHILS # (AUTO) 0.2 K/uL (0-0.4); EOSINOPHILS % (AUTO) 1.4 % (0.0-4.0); HEMATOCRIT 28.2 % (36-52); HEMOGLOBIN 8.9 g/dL (12.0-18.0); LYMPHOCYTES % (AUTO) 17.9 % (20.5-51.1); MEAN CORPUSCULAR HEMOGLOBIN 29 pg (27-31); MEAN CORPUSCULAR HGB CONC 32 g/dL (33-37); MEAN CORPUSCULAR VOLUME 93.3 fL (80-94); MONOCYTES # (AUTO) 0.4 K/uL (0.8-1.0); MONOCYTES % (AUTO) 3.7 % (1.7-9.3); NEUTROPHILS # (AUTO) 8.7 K/uL (1.8-7.7); NEUTROPHILS % (AUTO) 76.8 % (42.2-75.2); PLATELET COUNT (AUTO) 145 K/uL (140-450); RED BLOOD CELL COUNT(AUTO) 3.02 MIL/uL (4.20-6.10); RED CELL DISTRIBUTION WIDTH 16.9 % (11.6-13.7); WHITE BLOOD COUNT (AUTO) 11.4 K/uL (4.8-10.8)
[2023-11-24] MEDS: KCL 20 MEQ IN 100 mL PREMIX 200 ML IV ONE (15:54)
[2023-11-24 16:52] LABS: ANION GAP 12.8 (8-16); CALCIUM 7.6 mg/dL (8.5-10.1); CARBON DIOXIDE 22.1 mmol/L (21-32); POTASSIUM 3.9 mmol/L (3.5-5.1)
[2023-11-25] VITALS (18 sets, daily range): BP systolic 97–125; BP diastolic 52–74; PULSE 78–89; RESP 12–28; TEMP 97–98.2; O2SAT 95–100
[2023-11-25 05:34] LABS: BASOPHILS % (AUTO) 0.3 % (0.0-2.0); EOSINOPHILS # (AUTO) 0.1 K/uL (0-0.4); HEMATOCRIT 26.4 % (36-52); HEMOGLOBIN 8.4 g/dL (12.0-18.0); LYMPHOCYTES # (AUTO) 2.6 K/uL (2.0-11.5); LYMPHOCYTES % (AUTO) 22.6 % (20.5-51.1); MEAN CORPUSCULAR HEMOGLOBIN 30 pg (27-31); MEAN CORPUSCULAR HGB CONC 32 g/dL (33-37); MEAN CORPUSCULAR VOLUME 93.6 fL (80-94); MONOCYTES # (AUTO) 0.4 K/uL (0.8-1.0); MONOCYTES % (AUTO) 3.8 % (1.7-9.3); NEUTROPHILS # (AUTO) 8.5 K/uL (1.8-7.7); NEUTROPHILS % (AUTO) 72.3 % (42.2-75.2); PLATELET COUNT (AUTO) 167 K/uL (140-450); RED BLOOD CELL COUNT(AUTO) 2.82 MIL/uL (4.20-6.10); RED CELL DISTRIBUTION WIDTH 16.9 % (11.6-13.7); WHITE BLOOD COUNT (AUTO) 11.7 K/uL (4.8-10.8)
[2023-11-25 05:49] LABS: ANION GAP 14.6 (8-16); CALCIUM 7.6 mg/dL (8.5-10.1); CARBON DIOXIDE 19.9 mmol/L (21-32); POTASSIUM 3.5 mmol/L (3.5-5.1)
[2023-11-25 11:17] LABS: BILIRUBIN,URINE NEGATIVE (NEGATIVE); BLOOD, URINE 3+ (NEGATIVE); LEUKOCYTE ESTERASE ,URINE 2+ (NEGATIVE); NITRITE, URINE POSITIVE (NEGATIVE); PROTEIN,URINE 2+ (NEGATIVE); UGLUCOSE NEGATIVE (NEGATIVE); UROBILINOGEN,URINE 0.2 EU/dL (0.2 - 1)
[2023-11-25 11:19] LABS: APPEARANCE,URINE HAZY (CLEAR); COLOR,URINE SLIGHT BLOODY (YELLOW)
[2023-11-25 11:42] LABS: BACTERIA,URINE 1+ /HPF (None Seen); RBC,URINE TOO NUMEROUS TO COUN /HPF (0-5); SQUAMOUS EPITHELIAL CELL,UR 0-3 (FEW) /LPF (0-3 (FEW))
[2023-11-25] MEDS: POTASSIUM CHLORIDE 20% 40 MEQ/15 ML UDC GT SCH (14:18)
[2023-11-26] VITALS (17 sets, daily range): BP systolic 95–127; BP diastolic 56–77; PULSE 71–107; RESP 14–28; TEMP 97.1–99; O2SAT 94–100
[2023-11-26 06:38] LABS: BASOPHILS % (AUTO) 0.2 % (0.0-2.0); EOSINOPHILS # (AUTO) 0.1 K/uL (0-0.4); HEMOGLOBIN 8.6 g/dL (12.0-18.0); LYMPHOCYTES # (AUTO) 2.2 K/uL (2.0-11.5); LYMPHOCYTES % (AUTO) 19.6 % (20.5-51.1); MEAN CORPUSCULAR HEMOGLOBIN 30 pg (27-31); MEAN CORPUSCULAR HGB CONC 32 g/dL (33-37); MEAN CORPUSCULAR VOLUME 93.1 fL (80-94); MONOCYTES # (AUTO) 0.3 K/uL (0.8-1.0); MONOCYTES % (AUTO) 3.1 % (1.7-9.3); NEUTROPHILS # (AUTO) 8.5 K/uL (1.8-7.7); NEUTROPHILS % (AUTO) 76.1 % (42.2-75.2); PLATELET COUNT (AUTO) 201 K/uL (140-450); WHITE BLOOD COUNT (AUTO) 11.2 K/uL (4.8-10.8)
[2023-11-26 06:43] LABS: ANION GAP 14.3 (8-16); CALCIUM 7.6 mg/dL (8.5-10.1); CREATININE 0.9 mg/dL (0.6-1.3); POTASSIUM 3.3 mmol/L (3.5-5.1)
[2023-11-26] MEDS ORDERED: POTASSIUM CHLORIDE 20% 40 MEQ/15 ML UDC GT SCH (13:35)
[2023-11-26] MEDS: POTASSIUM CHLORIDE 20% 40 MEQ/15 ML UDC GT SCH (18:16)
[2023-11-26] MEDS: MAG SULF 2000 MG/WATER PREMIX 50 ML IV SCH (18:17)
[2023-11-26] MEDS: INSULIN LANTUS 100 UNITS/ML 10 ML VIAL SUBQ SCH (21:01)
[2023-11-27] VITALS (23 sets, daily range): BP systolic 95–126; BP diastolic 49–77; PULSE 70–95; RESP 16–26; TEMP 97.1–98.2; O2SAT 94–100
[2023-11-27 05:23] LABS: BASOPHILS % (AUTO) 0.2 % (0.0-2.0); EOSINOPHILS # (AUTO) 0.1 K/uL (0-0.4); EOSINOPHILS % (AUTO) 0.8 % (0.0-4.0); HEMATOCRIT 25.9 % (36-52); HEMOGLOBIN 8.4 g/dL (12.0-18.0); LYMPHOCYTES # (AUTO) 2.2 K/uL (2.0-11.5); LYMPHOCYTES % (AUTO) 24.1 % (20.5-51.1); MEAN CORPUSCULAR HEMOGLOBIN 30 pg (27-31); MEAN CORPUSCULAR HGB CONC 32 g/dL (33-37); MONOCYTES # (AUTO) 0.4 K/uL (0.8-1.0); MONOCYTES % (AUTO) 4.1 % (1.7-9.3); NEUTROPHILS # (AUTO) 6.5 K/uL (1.8-7.7); NEUTROPHILS % (AUTO) 70.8 % (42.2-75.2); PLATELET COUNT (AUTO) 211 K/uL (140-450); RED BLOOD CELL COUNT(AUTO) 2.82 MIL/uL (4.20-6.10); RED CELL DISTRIBUTION WIDTH 17.1 % (11.6-13.7); WHITE BLOOD COUNT (AUTO) 9.2 K/uL (4.8-10.8)
[2023-11-27 06:13] LABS: ANION GAP 13.5 (8-16); CALCIUM 7.6 mg/dL (8.5-10.1); CREATININE 0.8 mg/dL (0.6-1.3); POTASSIUM 3.5 mmol/L (3.5-5.1)
[2023-11-27] MEDS: POTASSIUM CHLORIDE 20% 40 MEQ/15 ML UDC GT SCH (16:47)
[2023-11-28] VITALS (21 sets, daily range): BP systolic 97–143; BP diastolic 50–78; PULSE 68–83; RESP 15–22; TEMP 96.5–97.8; O2SAT 96–100
[2023-11-28 05:45] LABS: BASOPHILS # (AUTO) 0.1 K/uL (0.00-0.22); EOSINOPHILS # (AUTO) 0.1 K/uL (0-0.4); EOSINOPHILS % (AUTO) 1.3 % (0.0-4.0); HEMATOCRIT 25.5 % (36-52); HEMOGLOBIN 8.2 g/dL (12.0-18.0); LYMPHOCYTES # (AUTO) 2.3 K/uL (2.0-11.5); LYMPHOCYTES % (AUTO) 29.7 % (20.5-51.1); MEAN CORPUSCULAR HEMOGLOBIN 30 pg (27-31); MEAN CORPUSCULAR HGB CONC 32 g/dL (33-37); MEAN CORPUSCULAR VOLUME 92.6 fL (80-94); MONOCYTES # (AUTO) 0.2 K/uL (0.8-1.0); MONOCYTES % (AUTO) 2.8 % (1.7-9.3); NEUTROPHILS # (AUTO) 5.1 K/uL (1.8-7.7); NEUTROPHILS % (AUTO) 65.2 % (42.2-75.2); PLATELET COUNT (AUTO) 217 K/uL (140-450); RED BLOOD CELL COUNT(AUTO) 2.75 MIL/uL (4.20-6.10); RED CELL DISTRIBUTION WIDTH 17.4 % (11.6-13.7); WHITE BLOOD COUNT (AUTO) 7.8 K/uL (4.8-10.8)
[2023-11-28 05:56] LABS: ANION GAP 13.1 (8-16); CALCIUM 7.6 mg/dL (8.5-10.1); CARBON DIOXIDE 21.2 mmol/L (21-32); CREATININE 0.7 mg/dL (0.6-1.3); POTASSIUM 3.3 mmol/L (3.5-5.1)
[2023-11-28] MEDS: POTASSIUM CHLORIDE 20% 40 MEQ/15 ML UDC GT SCH (16:43)
[2023-11-28] MEDS: DEXT 5% / NACL 0.45% 1,000 ML IV SCH (23:58)
[2023-11-29] VITALS (21 sets, daily range): BP systolic 90–128; BP diastolic 61–92; PULSE 60–83; RESP 12–20; TEMP 95.8–97.8; O2SAT 95–100
[2023-11-29 05:20] LABS: BASOPHILS % (AUTO) 0.7 % (0.0-2.0); EOSINOPHILS # (AUTO) 0.1 K/uL (0-0.4); EOSINOPHILS % (AUTO) 1.1 % (0.0-4.0); HEMATOCRIT 24.9 % (36-52); LYMPHOCYTES # (AUTO) 2.3 K/uL (2.0-11.5); LYMPHOCYTES % (AUTO) 32.6 % (20.5-51.1); MEAN CORPUSCULAR HEMOGLOBIN 30 pg (27-31); MEAN CORPUSCULAR HGB CONC 32 g/dL (33-37); MEAN CORPUSCULAR VOLUME 92.9 fL (80-94); MONOCYTES # (AUTO) 0.3 K/uL (0.8-1.0); MONOCYTES % (AUTO) 3.9 % (1.7-9.3); NEUTROPHILS # (AUTO) 4.3 K/uL (1.8-7.7); NEUTROPHILS % (AUTO) 61.7 % (42.2-75.2); PLATELET COUNT (AUTO) 223 K/uL (140-450); RED BLOOD CELL COUNT(AUTO) 2.68 MIL/uL (4.20-6.10); RED CELL DISTRIBUTION WIDTH 17.2 % (11.6-13.7); WHITE BLOOD COUNT (AUTO) 6.9 K/uL (4.8-10.8)
[2023-11-29 05:34] LABS: ANION GAP 11.9 (8-16); CALCIUM 7.4 mg/dL (8.5-10.1); CARBON DIOXIDE 23.5 mmol/L (21-32); CREATININE 0.7 mg/dL (0.6-1.3); POTASSIUM 3.4 mmol/L (3.5-5.1)
[2023-11-29 06:37] LABS: PARTIAL THROMBOPLASTIN TIME 28.8 secs (22-35.6); PROTHROMBIN TIME 10.5 secs (10.8-13.4)
[2023-11-29] MEDS: POTASSIUM CHLORIDE 20% 40 MEQ/15 ML UDC GT PRN (09:02)
[2023-11-29] MEDS: Z-GUARD PASTE TP SCH (11:30)
[2023-11-29] MEDS ORDERED: SEVOFLURANE 250 ML BTL INH ONE (13:00)
[2023-11-29] MEDS ORDERED: SILVER NITRATE APPLICATOR 1 EA SWAB TP ONE (14:10)
[2023-11-29] MEDS ORDERED: POTASSIUM CHLORIDE 20% 40 MEQ/15 ML UDC GT ONE (15:10)
[2023-11-29 16:16] LABS: ANION GAP 13.3 (8-16); CALCIUM 7.3 mg/dL (8.5-10.1); CARBON DIOXIDE 18.8 mmol/L (21-32); CREATININE 0.7 mg/dL (0.6-1.3); POTASSIUM 4.1 mmol/L (3.5-5.1)
[2023-11-29] MEDS: MEROPENEM 1,000 MG in NACL 0.9% 50 ML IV SCH (21:12)
[2023-11-30] VITALS (24 sets, daily range): BP systolic 92–124; BP diastolic 53–84; PULSE 61–94; RESP 16–19; TEMP 95.9–98; O2SAT 95–100
[2023-11-30 06:20] LABS: BASOPHILS % (AUTO) 0.3 % (0.0-2.0); EOSINOPHILS # (AUTO) 0.1 K/uL (0-0.4); EOSINOPHILS % (AUTO) 1.7 % (0.0-4.0); HEMATOCRIT 25.7 % (36-52); HEMOGLOBIN 8.4 g/dL (12.0-18.0); LYMPHOCYTES # (AUTO) 1.9 K/uL (2.0-11.5); LYMPHOCYTES % (AUTO) 28.3 % (20.5-51.1); MEAN CORPUSCULAR HEMOGLOBIN 30 pg (27-31); MEAN CORPUSCULAR HGB CONC 33 g/dL (33-37); MEAN CORPUSCULAR VOLUME 92.2 fL (80-94); MONOCYTES # (AUTO) 0.2 K/uL (0.8-1.0); MONOCYTES % (AUTO) 3.1 % (1.7-9.3); NEUTROPHILS # (AUTO) 4.5 K/uL (1.8-7.7); NEUTROPHILS % (AUTO) 66.6 % (42.2-75.2); PLATELET COUNT (AUTO) 213 K/uL (140-450); RED BLOOD CELL COUNT(AUTO) 2.79 MIL/uL (4.20-6.10); RED CELL DISTRIBUTION WIDTH 17.3 % (11.6-13.7); WHITE BLOOD COUNT (AUTO) 6.8 K/uL (4.8-10.8)
[2023-11-30 06:29] LABS: ANION GAP 12.7 (8-16); CALCIUM 7.5 mg/dL (8.5-10.1); CARBON DIOXIDE 20.6 mmol/L (21-32); CREATININE 0.7 mg/dL (0.6-1.3); POTASSIUM 3.3 mmol/L (3.5-5.1)
[2023-11-30] MEDS: MAGNESIUM OXIDE 400 MG TAB PO PRN (09:31)
[2023-12-01] VITALS (19 sets, daily range): BP systolic 90–116; BP diastolic 52–74; PULSE 77–103; RESP 11–25; TEMP 97.6–98.7; O2SAT 93–100
[2023-12-01 06:22] LABS: BASOPHILS % (AUTO) 0.2 % (0.0-2.0); EOSINOPHILS # (AUTO) 0.1 K/uL (0-0.4); EOSINOPHILS % (AUTO) 1.3 % (0.0-4.0); HEMATOCRIT 27.5 % (36-52); HEMOGLOBIN 8.6 g/dL (12.0-18.0); LYMPHOCYTES # (AUTO) 2.4 K/uL (2.0-11.5); LYMPHOCYTES % (AUTO) 28.9 % (20.5-51.1); MEAN CORPUSCULAR HEMOGLOBIN 29 pg (27-31); MEAN CORPUSCULAR HGB CONC 31 g/dL (33-37); MEAN CORPUSCULAR VOLUME 93.5 fL (80-94); MONOCYTES # (AUTO) 0.3 K/uL (0.8-1.0); MONOCYTES % (AUTO) 3.3 % (1.7-9.3); NEUTROPHILS # (AUTO) 5.4 K/uL (1.8-7.7); NEUTROPHILS % (AUTO) 66.3 % (42.2-75.2); PLATELET COUNT (AUTO) 262 K/uL (140-450); RED BLOOD CELL COUNT(AUTO) 2.94 MIL/uL (4.20-6.10); RED CELL DISTRIBUTION WIDTH 17.5 % (11.6-13.7); WHITE BLOOD COUNT (AUTO) 8.2 K/uL (4.8-10.8)
[2023-12-01 07:00] LABS: CALCIUM 7.4 mg/dL (8.5-10.1); CARBON DIOXIDE 20.8 mmol/L (21-32); CREATININE 0.7 mg/dL (0.6-1.3); POTASSIUM 3.8 mmol/L (3.5-5.1)
[2023-12-02] VITALS (19 sets, daily range): BP systolic 90–125; BP diastolic 48–83; PULSE 70–107; RESP 13–20; TEMP 97.3–98.3; O2SAT 91–100
[2023-12-02 05:48] LABS: BASOPHILS % (AUTO) 0.3 % (0.0-2.0); EOSINOPHILS # (AUTO) 0.1 K/uL (0-0.4); EOSINOPHILS % (AUTO) 0.8 % (0.0-4.0); HEMATOCRIT 25.7 % (36-52); HEMOGLOBIN 8.2 g/dL (12.0-18.0); LYMPHOCYTES # (AUTO) 1.9 K/uL (2.0-11.5); LYMPHOCYTES % (AUTO) 23.5 % (20.5-51.1); MEAN CORPUSCULAR HEMOGLOBIN 30 pg (27-31); MEAN CORPUSCULAR HGB CONC 32 g/dL (33-37); MONOCYTES # (AUTO) 0.4 K/uL (0.8-1.0); MONOCYTES % (AUTO) 5.2 % (1.7-9.3); NEUTROPHILS # (AUTO) 5.7 K/uL (1.8-7.7); NEUTROPHILS % (AUTO) 70.2 % (42.2-75.2); PLATELET COUNT (AUTO) 242 K/uL (140-450); RED BLOOD CELL COUNT(AUTO) 2.79 MIL/uL (4.20-6.10); RED CELL DISTRIBUTION WIDTH 18.6 % (11.6-13.7); WHITE BLOOD COUNT (AUTO) 8.2 K/uL (4.8-10.8)
[2023-12-02 06:40] LABS: ANION GAP 11.1 (8-16); CALCIUM 7.4 mg/dL (8.5-10.1); CARBON DIOXIDE 22.2 mmol/L (21-32); CREATININE 0.8 mg/dL (0.6-1.3); POTASSIUM 3.3 mmol/L (3.5-5.1)
[2023-12-03] VITALS (15 sets, daily range): BP systolic 104–141; BP diastolic 55–85; PULSE 68–89; RESP 14–21; TEMP 96.8–97.5; O2SAT 97–100
[2023-12-03 06:17] LABS: ANION GAP 11.6 (8-16); CALCIUM 7.7 mg/dL (8.5-10.1); CARBON DIOXIDE 22.7 mmol/L (21-32); CREATININE 0.8 mg/dL (0.6-1.3); POTASSIUM 3.3 mmol/L (3.5-5.1)
== END 2023-12-03 16:40 | DRG 710 ==
LOC: MED 06:00 → MTU 12:00 → MIC 12:06
PROVIDERS: ADMIT Hospitalist; ATTEND Hospitalist
PROC: 0DH63UZ Insertion of Feeding Device into Stomach, Percutaneous Approach (ICD-10-PCS; 2023-11-17)
PROC: 5A1955Z Respiratory Ventilation, Greater than 96 Consecutive Hours (ICD-10-PCS; 2023-11-17)
PROC: 0DP63UZ Removal of Feeding Device from Stomach, Percutaneous Approach (ICD-10-PCS; principal; 2023-11-20)
PROC: 0DHA8UZ Insertion of Feeding Device into Jejunum, Via Natural or Artificial Opening Endoscopic (ICD-10-PCS; 2023-11-20)
PROC: 0FPB8DZ Removal of Intraluminal Device from Hepatobiliary Duct, Via Natural or Artificial Opening Endoscopic (ICD-10-PCS; 2023-11-29)
PROC: BF111ZZ Fluoroscopy of Biliary and Pancreatic Ducts using Low Osmolar Contrast (ICD-10-PCS; 2023-11-29)
PROC: 0FPD8DZ Removal of Intraluminal Device from Pancreatic Duct, Via Natural or Artificial Opening Endoscopic (ICD-10-PCS; 2023-11-29)
DX: A41.50 Gram-negative sepsis, unspecified (principal); J96.21 Acute and chronic respiratory failure with hypoxia; E11.00 Type 2 diabetes mellitus with hyperosmolarity without nonketotic hyperglycemic-hyperosmolar coma (NKHHC); G82.50 Quadriplegia, unspecified; L89.153 Pressure ulcer of sacral region, stage 3; G93.1 Anoxic brain damage, not elsewhere classified; T18.2XXA Foreign body in stomach, initial encounter; N17.9 Acute kidney failure, unspecified; J15.5 Pneumonia due to Escherichia coli; K94.23 Gastrostomy malfunction; T83.518A Infection and inflammatory reaction due to other urinary catheter, initial encounter; Z20.822 Contact with and (suspected) exposure to COVID-19; R13.19 Other dysphagia; E11.22 Type 2 diabetes mellitus with diabetic chronic kidney disease; I12.9 Hypertensive chronic kidney disease with stage 1 through stage 4 chronic kidney disease, or unspecified chronic kidney disease; D69.6 Thrombocytopenia, unspecified; R31.9 Hematuria, unspecified; Z16.24 Resistance to multiple antibiotics; B96.4 Proteus (mirabilis) (morganii) as the cause of diseases classified elsewhere; G40.909 Epilepsy, unspecified, not intractable, without status epilepticus; Y83.8 Other surgical procedures as the cause of abnormal reaction of the patient, or of later complication, without mention of misadventure at the time of the procedure; Y95 Nosocomial condition; Z16.12 Extended spectrum beta lactamase (ESBL) resistance; E87.6 Hypokalemia; Z86.74 Personal history of sudden cardiac arrest; Z99.11 Dependence on respirator [ventilator] status; Z91.51 Personal history of suicidal behavior; Y92.89 Other specified places as the place of occurrence of the external cause; Z90.49 Acquired absence of other specified parts of digestive tract
CPT/HCPCS: 36415; 71045; 74018; 74021; 74330; 80048; 80053; 80076; 80202; 81001; 82009; 82272; 82550; 82553; 82728; 82803; 82948; 83036; 83540; 83605; 83735; 83880; 83930; 84100; 84484; 85025; 85610; 85730; 87040; 87070; 87081; 87086; 87186; 87205; 89220; 93005; 94002; 94003; 94640; 96365; 96366; 99291; C1887; C9113; J1580; J1644; J1815; J1953; J2185; J2543; J2704; J3370; J3475; J3480; J7030; J7060; Q0092; Q9967

== ENCOUNTER 2024-01-29 16:32 | Inpatient (IN) | payer OTHER ==
[~2024-01-29] VITALS: Ht 180.3 cm; Wt 81.6 kg
[2024-01-29 16:32] VITALS: BP 120/86; PULSE 88; RESP 16; TEMP 98.6; O2SAT 99
[~2024-01-29 16:32] MED LIST changes: +ARGI4.5P3 GT; -ATRMDI INH; -CRAN450T5 GT; +FERR220S GT; +IPRA12.9 INH; -MAGN400S60 GT; +MEDI30SO GT; -MULT-1328 GT; -NUTR30LI3 GT; +NUTR887L11 GT; +ZINC220T3 GT; -[UNRECOGNIZED DRUG - CODE] SUBQ; +[UNRECOGNIZED DRUG - CODE] TOP
[2024-01-29 16:39] VITALS: BP 106/64; PULSE 82; O2SAT 100
[2024-01-29] MEDS: NACL 0.9% 500 ML IV SCH (17:54)
[2024-01-29 18:11] LABS: BASOPHILS % (AUTO) 0.2 % (0.0-2.0); EOSINOPHILS # (AUTO) 0.1 K/uL (0-0.4); EOSINOPHILS % (AUTO) 0.6 % (0.0-4.0); HEMATOCRIT 38.1 % (36-52); LYMPHOCYTES # (AUTO) 3.9 K/uL (2.0-11.5); LYMPHOCYTES % (AUTO) 24.1 % (20.5-51.1); MEAN CORPUSCULAR HEMOGLOBIN 30 pg (27-31); MEAN CORPUSCULAR HGB CONC 34 g/dL (33-37); MEAN CORPUSCULAR VOLUME 88.6 fL (80-94); MONOCYTES # (AUTO) 0.7 K/uL (0.8-1.0); MONOCYTES % (AUTO) 4.5 % (1.7-9.3); NEUTROPHILS # (AUTO) 11.5 K/uL (1.8-7.7); NEUTROPHILS % (AUTO) 70.6 % (42.2-75.2); PLATELET COUNT (AUTO) 289 K/uL (140-450); RED CELL DISTRIBUTION WIDTH 17.9 % (11.6-13.7); WHITE BLOOD COUNT (AUTO) 16.3 K/uL (4.8-10.8)
[2024-01-29 18:21] LABS: ANION GAP 9.8 (8-16); CALCIUM 10.5 mg/dL (8.5-10.1); CREATININE 1.7 mg/dL (0.6-1.3)
[2024-01-29 18:22] LABS: INR 0.98 (0.8-1.2); PARTIAL THROMBOPLASTIN TIME 24.6 secs (22-35.6); PROTHROMBIN TIME 10.3 secs (10.8-13.4)
[2024-01-29 18:27] LABS: CARBON DIOXIDE 43.6 mmol/L (21-32); POTASSIUM 2.4 mmol/L (3.5-5.1)
[2024-01-29 18:28] LABS: ALANINE AMINOTRANSFERASE 29 U/L (12-78); ALBUMIN 3.2 g/dL (3.4-5.0); ALKALINE PHOSPHATASE 112 U/L (50-136); ASPARTATE AMINOTRANSFERASE 29 U/L (15-37); BILIRUBIN,DIRECT 0.2 mg/dL (0.0-0.3); TOTAL BILIRUBIN 0.7 mg/dL (0.0-1.0); TOTAL PROTEIN, SERUM 9.4 g/dL (6.4-8.2)
[2024-01-29 18:29] LABS: LACTIC ACID 4.9 mmol/L (0.4-2.0)
[2024-01-29 18:38] LABS: FLU A ANTIGEN negative (NEGATIVE); FLU B ANTIGEN NEGATIVE (NEGATIVE); RSV NEGATIVE (NEGATIVE)
[2024-01-29 18:39] LABS: APPEARANCE,URINE CLOUDY (CLEAR); COLOR,URINE GREEN (YELLOW)
[2024-01-29 18:40] LABS: LEUKOCYTE ESTERASE ,URINE 3+ (NEGATIVE)
[2024-01-29 18:41] LABS: NITRITE, URINE NEGATIVE (NEGATIVE); PROTEIN,URINE 3+ (NEGATIVE); UROBILINOGEN,URINE 0.2 EU/dL (0.2 - 1)
[2024-01-29] MEDS ORDERED: PIPERACILLIN/TAZOBACTAM 3.375 GM VIAL IV ONE (18:41)
[2024-01-29 18:42] LABS: BLOOD, URINE 3+ (NEGATIVE)
[2024-01-29] MEDS: PIPERACILLIN/TAZOBACTAM 3.375 GM in DEXTROSE 5% 50 ML IV ONE (18:42)
[2024-01-29 18:43] LABS: BILIRUBIN,URINE 1+ (NEGATIVE); UGLUCOSE NEGATIVE (NEGATIVE)
[2024-01-29] MEDS: NACL 0.9% 1,000 ML IV ONE (18:43)
[2024-01-29 18:50] LABS: ICTOTEST NEGATIVE (NEGATIVE)
[2024-01-29 18:51] LABS: BACTERIA,URINE 10-30 (MOD) /HPF (None Seen); MUCUS,URINE 2+ /LPF (None Seen); RBC,URINE 20-50 /HPF (0-5); SQUAMOUS EPITHELIAL CELL,UR 4-10 (MOD) /LPF (0-3 (FEW)); WBC,URINE 16-25 (MOD) /HPF (0-5)
[2024-01-29] MEDS ORDERED: ONDANSETRON 4 MG/2 ML VIAL IVP PRN (18:55)
[2024-01-29] MEDS ORDERED: MAG SULF 2000 MG/WATER PREMIX 50 ML IV PRN (18:55)
[2024-01-29] MEDS ORDERED: HYDROcodone/APAP 5/325 MG 1 TAB TAB PO PRN (18:55)
[2024-01-29] MEDS ORDERED: MORPHINE SULFATE 2 MG/ML SYR IVP PRN (18:55)
[2024-01-29] MEDS ORDERED: MAGNESIUM OXIDE 400 MG TAB PO PRN (18:55)
[2024-01-29] MEDS ORDERED: POTASSIUM CHLORIDE 10 MEQ TABER PO PRN (18:55)
[2024-01-29 19:24] VITALS: PULSE 82; O2SAT 100
[2024-01-29 20:00] VITALS: BP 110/68; RESP 17; TEMP 97; O2SAT 99
[2024-01-29 20:21] VITALS: PULSE 88; RESP 17; O2SAT 99
[2024-01-29 20:26] VITALS: PULSE 84
[2024-01-29] MEDS: NACL 0.9% 1,000 ML IV SCH (21:55)
[2024-01-29] MEDS: KCL 20 MEQ IN 100 mL PREMIX 200 ML IV PRN (21:57)
[2024-01-30] VITALS (15 sets, daily range): BP systolic 91–109; BP diastolic 44–61; PULSE 81–103; RESP 14–18; TEMP 36.6; O2SAT 97–100
[2024-01-30] MEDS: PIPERACILLIN/TAZOBACTAM 3.375 GM in DEXTROSE 5% 50 ML IV SCH ×2 (00:14→13:05)
[2024-01-30] MEDS: PIPERACILLIN/TAZOBACTAM 3.375 GM VIAL IV ONE ×2 (00:14→05:49)
[2024-01-30] MEDS: NACL 0.45% 1,000 ML IV SCH (00:29)
[2024-01-30 04:16] LABS: BASOPHILS # (AUTO) 0.1 K/uL (0.00-0.22); BASOPHILS % (AUTO) 0.4 % (0.0-2.0); EOSINOPHILS % (AUTO) 0.2 % (0.0-4.0); HEMATOCRIT 35.3 % (36-52); HEMOGLOBIN 12.1 g/dL (12.0-18.0); LYMPHOCYTES # (AUTO) 1.5 K/uL (2.0-11.5); LYMPHOCYTES % (AUTO) 8.1 % (20.5-51.1); MEAN CORPUSCULAR HEMOGLOBIN 30 pg (27-31); MEAN CORPUSCULAR HGB CONC 34 g/dL (33-37); MEAN CORPUSCULAR VOLUME 87.7 fL (80-94); MONOCYTES # (AUTO) 0.5 K/uL (0.8-1.0); MONOCYTES % (AUTO) 2.6 % (1.7-9.3); NEUTROPHILS # (AUTO) 16.9 K/uL (1.8-7.7); NEUTROPHILS % (AUTO) 88.7 % (42.2-75.2); PLATELET COUNT (AUTO) 267 K/uL (140-450); RED BLOOD CELL COUNT(AUTO) 4.02 MIL/uL (4.20-6.10); WHITE BLOOD COUNT (AUTO) 19.1 K/uL (4.8-10.8)
[2024-01-30 04:44] LABS: ALBUMIN 2.9 g/dL (3.4-5.0); ANION GAP 8.8 (8-16); CALCIUM 9.4 mg/dL (8.5-10.1); CREATININE 1.6 mg/dL (0.6-1.3); MAGNESIUM 3.8 mg/dL (1.8-2.4); TOTAL BILIRUBIN 1.1 mg/dL (0.0-1.0); TOTAL PROTEIN, SERUM 8.7 g/dL (6.4-8.2)
[2024-01-30 04:50] LABS: CARBON DIOXIDE 40.4 mmol/L (21-32); POTASSIUM 2.2 mmol/L (3.5-5.1)
[2024-01-30 08:24] LABS: ANION GAP 8.4 (8-16); CALCIUM 9.4 mg/dL (8.5-10.1); CREATININE 1.6 mg/dL (0.6-1.3)
[2024-01-30 08:32] LABS: POTASSIUM 2.5 mmol/L (3.5-5.1)
[2024-01-30 08:33] LABS: CARBON DIOXIDE 42.1 mmol/L (21-32)
[2024-01-30] MEDS: MEDS-TO-BEDS MC SCH (08:50)
[2024-01-30] MEDS: Z-GUARD PASTE TP ONE (11:47)
[2024-01-30 12:52] LABS: ANION GAP 8.5 (8-16); CALCIUM 9.3 mg/dL (8.5-10.1); CREATININE 1.5 mg/dL (0.6-1.3)
[2024-01-30 13:38] LABS: POTASSIUM 2.7 mmol/L (3.5-5.1)
[2024-01-30 13:40] LABS: CARBON DIOXIDE 40.2 mmol/L (21-32)
[2024-01-30] MEDS: NACL 3% 500 ML IV ONE (14:37)
[2024-01-30] MEDS: POTASSIUM CHLORIDE 20% 40 MEQ/15 ML UDC GT SCH (15:37)
[2024-01-30] MEDS: ACETAMINOPHEN 325 MG TAB PO PRN (17:19)
[2024-01-30 18:24] LABS: ANION GAP 12.1 (8-16); CALCIUM 9.3 mg/dL (8.5-10.1); CARBON DIOXIDE 40.8 mmol/L (21-32); CREATININE 1.7 mg/dL (0.6-1.3)
[2024-01-30 18:31] LABS: POTASSIUM 2.9 mmol/L (3.5-5.1)
[2024-01-30] MEDS: NACL 0.9% 500 ML IV ONE (20:43)
[2024-01-30] MEDS: LANSOPRAZOLE 30 MG CAPDR GT SCH (20:44)
[2024-01-30] MEDS: levETIRAcetam 100 MG/ML ORASYR GT SCH (20:44)
[2024-01-30] MEDS ORDERED: PROTEIN HYDROLYS GT SCH (21:00)
[2024-01-30] MEDS ORDERED: PANTOPRAZOLE 40 MG TABEC PO SCH (21:00)
[2024-01-30] MEDS ORDERED: AMINO ACIDS GT SCH (21:00)
[2024-01-31] VITALS (13 sets, daily range): BP systolic 90–103; BP diastolic 46–56; PULSE 58–98; RESP 14–22; TEMP 36.6; O2SAT 69–100
[2024-01-31] MEDS: ERYTHROMYCIN 250 MG in NACL 0.9% 100 ML IV SCH (00:06)
[2024-01-31 00:33] LABS: ANION GAP 9.9 (8-16); CALCIUM 9.5 mg/dL (8.5-10.1); CREATININE 1.9 mg/dL (0.6-1.3); POTASSIUM 3.3 mmol/L (3.5-5.1)
[2024-01-31 00:36] LABS: CARBON DIOXIDE 40.4 mmol/L (21-32)
[2024-01-31 04:12] LABS: BASOPHILS # (AUTO) 0.1 K/uL (0.00-0.22); BASOPHILS % (AUTO) 0.5 % (0.0-2.0); EOSINOPHILS # (AUTO) 0.1 K/uL (0-0.4); EOSINOPHILS % (AUTO) 0.5 % (0.0-4.0); HEMATOCRIT 30.8 % (36-52); HEMOGLOBIN 10.5 g/dL (12.0-18.0); LYMPHOCYTES # (AUTO) 2.2 K/uL (2.0-11.5); LYMPHOCYTES % (AUTO) 19.7 % (20.5-51.1); MEAN CORPUSCULAR HEMOGLOBIN 31 pg (27-31); MEAN CORPUSCULAR HGB CONC 34 g/dL (33-37); MEAN CORPUSCULAR VOLUME 89.3 fL (80-94); MONOCYTES # (AUTO) 0.5 K/uL (0.8-1.0); MONOCYTES % (AUTO) 4.2 % (1.7-9.3); NEUTROPHILS # (AUTO) 8.3 K/uL (1.8-7.7); NEUTROPHILS % (AUTO) 75.1 % (42.2-75.2); PLATELET COUNT (AUTO) 209 K/uL (140-450); RED BLOOD CELL COUNT(AUTO) 3.45 MIL/uL (4.20-6.10); RED CELL DISTRIBUTION WIDTH 18.1 % (11.6-13.7)
[2024-01-31 04:28] LABS: ANION GAP 10.2 (8-16); CALCIUM 9.6 mg/dL (8.5-10.1); CARBON DIOXIDE 40.2 mmol/L (21-32); POTASSIUM 3.4 mmol/L (3.5-5.1)
[2024-01-31] MEDS: NACL 0.9% 1,000 ML IV SCH (08:41)
[2024-01-31] MEDS ORDERED: ARGININE GT SCH (09:00)
[2024-01-31] MEDS ORDERED: ASCORBATE SOD GT SCH (09:00)
[2024-01-31] MEDS ORDERED: VITE AC GT SCH (09:00)
[2024-01-31 09:19] LABS: ALBUMIN 2.5 g/dL (3.4-5.0); ANION GAP 13.1 (8-16); CALCIUM 9.4 mg/dL (8.5-10.1); CARBON DIOXIDE 37.8 mmol/L (21-32); CREATININE 2.1 mg/dL (0.6-1.3); MAGNESIUM 3.8 mg/dL (1.8-2.4); TOTAL BILIRUBIN 0.7 mg/dL (0.0-1.0); TOTAL PROTEIN, SERUM 7.9 g/dL (6.4-8.2)
[2024-01-31 09:34] LABS: POTASSIUM 2.9 mmol/L (3.5-5.1)
[2024-01-31] MEDS: NACL 0.45% 1,000 ML IV SCH (10:19)
[2024-01-31] MEDS: MIDODRINE 5 MG TAB GT SCH (10:21)
[2024-01-31] MEDS ORDERED: KCL 20 MEQ IN 100 mL PREMIX 200 ML IV SCH (10:30)
[2024-01-31] MEDS: POTASSIUM CHLORIDE 40 MEQ, LIDOCAINE 1% 25 MG in NACL 0.9% 250 ML IV SCH (12:00)
[2024-01-31] MEDS: SCOPOLAMINE 1.5 MG/72 HR PATCH TD SCH (12:26)
[2024-01-31 13:09] LABS: ANION GAP 14.5 (8-16); CALCIUM 9.3 mg/dL (8.5-10.1); CARBON DIOXIDE 35.3 mmol/L (21-32); CREATININE 1.9 mg/dL (0.6-1.3)
[2024-01-31] MEDS ORDERED: THERAHONEY GEL 42.5 GM TP PRN (13:10)
[2024-01-31] MEDS ORDERED: NON ADHERENT DRESSING TP PRN (13:10)
[2024-01-31] MEDS ORDERED: FOAM DRESSING TP PRN (13:10)
[2024-01-31] MEDS ORDERED: ALGINATE ROPE MC PRN (13:10)
[2024-01-31 13:37] LABS: POTASSIUM 2.8 mmol/L (3.5-5.1)
[2024-01-31] MEDS: POTASSIUM CHL 40 MEQ/ D5-1/2NS 1,000 ML IV ONE (14:54)
[2024-01-31 16:56] LABS: ANION GAP 10.3 (8-16); CALCIUM 9.1 mg/dL (8.5-10.1); POTASSIUM 3.3 mmol/L (3.5-5.1)
[2024-01-31 20:58] LABS: ANION GAP 11.1 (8-16); CALCIUM 9.2 mg/dL (8.5-10.1); CARBON DIOXIDE 34.9 mmol/L (21-32); CREATININE 1.8 mg/dL (0.6-1.3)
[2024-02-01] VITALS (18 sets, daily range): BP systolic 101–118; BP diastolic 56–61; PULSE 50–83; RESP 14–20; TEMP 96.6–97.8; O2SAT 97–100
[2024-02-01 01:02] LABS: ANION GAP 12.4 (8-16); CALCIUM 9.3 mg/dL (8.5-10.1); CARBON DIOXIDE 34.8 mmol/L (21-32); CREATININE 1.7 mg/dL (0.6-1.3); POTASSIUM 3.2 mmol/L (3.5-5.1)
[2024-02-01 06:23] LABS: BASOPHILS % (AUTO) 0.6 % (0.0-2.0); EOSINOPHILS # (AUTO) 0.1 K/uL (0-0.4); EOSINOPHILS % (AUTO) 1.3 % (0.0-4.0); HEMATOCRIT 30.9 % (36-52); HEMOGLOBIN 10.5 g/dL (12.0-18.0); LYMPHOCYTES % (AUTO) 25.9 % (20.5-51.1); MEAN CORPUSCULAR HEMOGLOBIN 31 pg (27-31); MEAN CORPUSCULAR HGB CONC 34 g/dL (33-37); MEAN CORPUSCULAR VOLUME 90.8 fL (80-94); MONOCYTES # (AUTO) 0.5 K/uL (0.8-1.0); MONOCYTES % (AUTO) 6.1 % (1.7-9.3); NEUTROPHILS # (AUTO) 5.1 K/uL (1.8-7.7); NEUTROPHILS % (AUTO) 66.1 % (42.2-75.2); PLATELET COUNT (AUTO) 190 K/uL (140-450); RED CELL DISTRIBUTION WIDTH 18.2 % (11.6-13.7); WHITE BLOOD COUNT (AUTO) 7.7 K/uL (4.8-10.8)
[2024-02-01 07:13] LABS: ALBUMIN 2.6 g/dL (3.4-5.0); ANION GAP 11.4 (8-16); CALCIUM 9.7 mg/dL (8.5-10.1); CARBON DIOXIDE 35.5 mmol/L (21-32); CREATININE 1.5 mg/dL (0.6-1.3); MAGNESIUM 3.5 mg/dL (1.8-2.4); TOTAL BILIRUBIN 0.6 mg/dL (0.0-1.0); TOTAL PROTEIN, SERUM 8.1 g/dL (6.4-8.2)
[2024-02-01 07:17] LABS: POTASSIUM 2.9 mmol/L (3.5-5.1)
[2024-02-01] MEDS ORDERED: POTASSIUM CHLORIDE 20 MEQ in NACL 0.45% 1,000 ML IV SCH (09:55)
[2024-02-01] MEDS: KCL 20 MEQ IN 100 mL PREMIX 200 ML IV SCH (10:13)
[2024-02-01] MEDS: POTASSIUM CHL 20 MEQ/ 1/2 NS 1,000 ML IV SCH (10:21)
[2024-02-01] MEDS: THERAHONEY GEL 42.5 GM TP SCH (12:47)
[2024-02-01] MEDS: NON ADHERENT DRESSING TP SCH (12:47)
[2024-02-01] MEDS: FOAM DRESSING TP SCH (12:47)
[2024-02-01] MEDS: ALGINATE ROPE MC SCH (12:47)
[2024-02-01 16:40] LABS: POTASSIUM 3.1 mmol/L (3.5-5.1)
[2024-02-01 16:41] LABS: ANION GAP 11.3 (8-16); CALCIUM 9.7 mg/dL (8.5-10.1); CARBON DIOXIDE 34.8 mmol/L (21-32); CREATININE 1.5 mg/dL (0.6-1.3)
[2024-02-02] VITALS (13 sets, daily range): BP systolic 101–115; BP diastolic 52–70; PULSE 52–72; RESP 14–19; TEMP 97–97.7; O2SAT 97–100
[2024-02-02 06:34] LABS: BASOPHILS % (AUTO) 0.7 % (0.0-2.0); EOSINOPHILS # (AUTO) 0.1 K/uL (0-0.4); EOSINOPHILS % (AUTO) 1.6 % (0.0-4.0); HEMATOCRIT 31.5 % (36-52); HEMOGLOBIN 10.5 g/dL (12.0-18.0); LYMPHOCYTES # (AUTO) 1.9 K/uL (2.0-11.5); LYMPHOCYTES % (AUTO) 29.5 % (20.5-51.1); MEAN CORPUSCULAR HEMOGLOBIN 31 pg (27-31); MEAN CORPUSCULAR HGB CONC 33 g/dL (33-37); MEAN CORPUSCULAR VOLUME 91.9 fL (80-94); MONOCYTES # (AUTO) 0.4 K/uL (0.8-1.0); MONOCYTES % (AUTO) 6.2 % (1.7-9.3); PLATELET COUNT (AUTO) 214 K/uL (140-450); RED BLOOD CELL COUNT(AUTO) 3.43 MIL/uL (4.20-6.10); RED CELL DISTRIBUTION WIDTH 18.3 % (11.6-13.7); WHITE BLOOD COUNT (AUTO) 6.4 K/uL (4.8-10.8)
[2024-02-02 06:52] LABS: ALBUMIN 2.6 g/dL (3.4-5.0); ANION GAP 12.1 (8-16); CALCIUM 9.5 mg/dL (8.5-10.1); CARBON DIOXIDE 32.1 mmol/L (21-32); CREATININE 1.3 mg/dL (0.6-1.3); MAGNESIUM 3.1 mg/dL (1.8-2.4); POTASSIUM 3.2 mmol/L (3.5-5.1); TOTAL BILIRUBIN 0.7 mg/dL (0.0-1.0)
[2024-02-03] MEDS ORDERED: POTASSIUM CHL 40 MEQ/ D5-1/2NS 1,000 ML IV SCH (10:25)
== END 2024-02-02 19:40 | DRG 720 ==
LOC: MED 16:32 → MTU 18:58
PROVIDERS: ADMIT Hospitalist; ATTEND Hospitalist
PROC: 5A1945Z Respiratory Ventilation, 24-96 Consecutive Hours (ICD-10-PCS; principal; 2024-01-29)
PROC: 05HY33Z Insertion of Infusion Device into Upper Vein, Percutaneous Approach (ICD-10-PCS; 2024-01-31)
PROC: B54MZZA Ultrasonography of Right Upper Extremity Veins, Guidance (ICD-10-PCS; 2024-01-31)
DX: A41.9 Sepsis, unspecified organism (principal); N17.0 Acute kidney failure with tubular necrosis; G82.50 Quadriplegia, unspecified; L89.154 Pressure ulcer of sacral region, stage 4; E44.0 Moderate protein-calorie malnutrition; G93.1 Anoxic brain damage, not elsewhere classified; E87.3 Alkalosis; J96.10 Chronic respiratory failure, unspecified whether with hypoxia or hypercapnia; E87.1 Hypo-osmolality and hyponatremia; D63.8 Anemia in other chronic diseases classified elsewhere; K94.23 Gastrostomy malfunction; E87.8 Other disorders of electrolyte and fluid balance, not elsewhere classified; Z20.822 Contact with and (suspected) exposure to COVID-19; E87.6 Hypokalemia; E11.9 Type 2 diabetes mellitus without complications; I10 Essential (primary) hypertension; G40.909 Epilepsy, unspecified, not intractable, without status epilepticus; N39.0 Urinary tract infection, site not specified; Z79.51 Long term (current) use of inhaled steroids; Z79.899 Other long term (current) drug therapy; Z86.74 Personal history of sudden cardiac arrest; Z68.25 Body mass index [BMI] 25.0-25.9, adult
CPT/HCPCS: 36415; 71045; 80048; 80053; 80076; 81001; 83605; 83735; 83880; 84484; 85025; 85610; 85730; 87040; 87081; 87086; 87186; 87420; 93005; 94003; 96361; 96365; 99285; J1364; J1644; J2001; J2543; J3480; J3490; J7030; J7060; Q0092